=== PATIENT | female | born 1975 | race Caucasian/White ===

== ENCOUNTER 2018-05-02 03:59 | Emergency (ER) | payer SELFPAY ==
[2018-05-02] MEDS ORDERED: Ketorolac INJ* 60 MG/2 ML VIAL IM ONE (04:16)
[2018-05-02] MEDS ORDERED: Cyclobenzaprine TAB* 10 MG PO ONE (04:17)
[2018-05-02] MEDS ORDERED: oxyCODONE/Acetamin 5/325 MG* TAB PO ONE (04:17)
[2018-05-02] MEDS ORDERED: predniSONE TAB* 20 MG PO ONE (04:18)
[2018-05-02 05:23] VITALS: BP 139/65
--- NOTE | 2018-05-02 23:25 | ED ---
Lalita Jaimes Emily, scribed for Maddy Israel MD on 05/02/18 at 0420 . Back Pain - HPI Summary HPI Summary: This patient is a 42 year old F presenting to [facility] accompanied by with a chief complaint of low, right back pain radiating to right leg that began around 2100 yesterday. The patient rates the pain 6/10 in severity. Symptoms aggravated by movement. Symptoms alleviated by nothing. Patient denies bladder symptoms - History of Current Complaint Chief Complaint: EDBackInjuryPain Stated Complaint: BACK PAIN Time Seen by Provider: 05/02/18 04:09 Hx Obtained From: Patient Onset/Duration: Sudden Onset, Lasting Hours, Still Present Onset/Duration: Started Hours Ago, Atraumatic, Still Present Timing: Constant Back Pain Location: Is Discrete @ - Low, right back Severity Initially: Moderate Severity Currently: Moderate Pain Intensity: 6 Pain Scale Used: 0-10 Numeric Aggravating Symptom(s): Movement Alleviating Symptom(s): Nothing Associated Signs And Symptoms: Positive: Other - Negative bladder symptoms - Allergies/Home Medications Allergies/Adverse Reactions: Allergies Allergy/AdvReac Type Severity Reaction Status Date / Time cefaclor [From Ceclor] Allergy Severe Hives Verified 05/02/18 04:05 Latex, Natural Rubber Allergy Severe Hives Verified 05/02/18 04:05 loracarbef [From Lorabid] Allergy Severe Hives Verified 05/02/18 04:05 Penicillins Allergy Severe Difficulty Verified 05/02/18 04:05 Breathing Sulfa (Sulfonamide Allergy Severe Hives Verified 05/02/18 04:05 Antibiotics) clarithromycin [From Biaxin] Allergy Intermediate Headache Verified 05/02/18 04: 05 PMH/Surg Hx/FS Hx/Imm Hx Previously Healthy: No Musculoskeletal History: Reports: Hx Scoliosis Opthamlomology History: Denies: Hx Legally Blind EENT History: Denies: Hx Deafness Infectious Disease History: No Infectious Disease History: Denies: Traveled Outside the [place] in Last 30 Days - Family History Known Family History: Positive: Cardiac Disease, Diabetes - Social History Occupation: Unemployed Lives: With Family Alcohol Use: Occasionally Hx Substance Use: No Substance Use Type: Reports: None Hx Tobacco Use: No Smoking Status (MU): Never Smoked Tobacco Review of Systems Positive: no symptoms reported Positive: Other - Positive back pain All Other Systems Reviewed And Are Negative: Yes Physical Exam - Summary Physical Exam Summary: VITAL SIGNS: Reviewed. GENERAL: ~Patient is a well-developed and nourished female who is lying comfortable in the stretcher. Patient is not in any acute respiratory distress. HEAD AND FACE: No signs of trauma. No ecchymosis, hematomas or skull depressions. No sinus tenderness. EYES: PERRLA, EOMI x 2, No injected conjunctiva, no nystagmus. EARS: Hearing grossly intact. Ear canals and tympanic membranes are within normal limits. MOUTH: Oropharynx within normal limits. NECK: Supple, trachea is midline, no adenopathy, no JVD, no carotid bruit, no c- spine tenderness, neck with full ROM. CHEST: Symmetric, no tenderness at palpation LUNGS: Clear to auscultation bilaterally. No wheezing or crackles. CVS: Regular rate and rhythm, S1 and S2 present, no murmurs or gallops appreciated. ABDOMEN: Soft, non-tender. No signs of distention. No rebound no guarding, and no masses palpated. Bowel sounds are normal. EXTREMITIES: Straight leg raise positive left at 0 degrees and positive right straight leg raise 20 degrees, no edema, no cyanosis or clubbing. NEURO: Alert and oriented x 3. No acute neurological deficits. Speech is normal and follows commands. SKIN: Dry and warm Triage Information Reviewed: Yes Vital Signs On Initial Exam: Initial Vitals Temp Pulse Resp BP Pulse Ox 97.4 F 85 18 167/122 98 05/02/18 04:05 05/02/18 04:05 05/02/18 04:05 05/02/18 04:05 05/02/18 04:05 Vital Signs Reviewed: Yes Diagnostics - Vital Signs Vital Signs Temp Pulse Resp BP Pulse Ox 05/02/18 04:05 97.4 F 85 18 167/122 98 - Laboratory Lab Statement: Any lab studies that have been ordered have been reviewed, and results considered in the medical decision making process. Re-Evaluation - Re-Evaluation First Eval Re-Evaluation Time: 05:08 Change: Improved Comment: Discussed plan of care with the patient Back Pain Course/Dx - Course Course Of Treatment: This patient is a 42 year old F presenting to [facility] accompanied by with a chief complaint of low, right back pain radiating to right leg that began around 2100 yesterday. Upon exam, straight leg raise positive left leg at 0 degrees and positive right straight leg raise 20 degrees. The patient will be discharged home with a prescription for prednisone and percocet, and with follow up from PCP. The patient is agreeable with this plan. - Diagnoses Provider Diagnoses: Right sided sciatica Discharge - Sign-Out/Discharge Documenting (check all that apply): Discharge/Admit/Transfer - Discharge home - Discharge Plan Condition: Stable Disposition: HOME Prescriptions: oxyCODONE/Acetamin 5/325 MG* [Percocet 5/325 TAB*] 1 tab PO Q6H PRN #14 tab MDD 4 PRN Reason: Pain predniSONE TAB* [Deltasone 20 MG TAB*] 40 mg PO DAILY #10 tab Patient Education Materials: Sciatica (ED), Oxycodone/Acetaminophen (By mouth) , Prednisone (By mouth) Referrals: [facility] [Outside] - 3 Days Additional Instructions: RETURN TO THE EMERGENCY DEPARTMENT FOR NEW OR WORSENING SYMPTOMS The documentation as recorded by the Lalita thornton Emily accurately reflects the service I personally performed and the decisions made by me, Maddy Israel MD.
== END 2018-05-02 05:22 | disposition home or self-care (01) ==
LOC: ED 03:59
DX: M54.41 Lumbago with sciatica, right side (principal); M41.9 Scoliosis, unspecified; Z88.0 Allergy status to penicillin; Z88.2 Allergy status to sulfonamides; Z88.8 Allergy status to other drugs, medicaments and biological substances; Z88.1 Allergy status to other antibiotic agents; Z91.040 Latex allergy status; Z82.49 Family history of ischemic heart disease and other diseases of the circulatory system; Z83.3 Family history of diabetes mellitus
CPT/HCPCS: 96372; 99282; A9270-GY; J1885; J7512

== ENCOUNTER 2018-05-04 08:53 | Inpatient (IN) | payer SELFPAY ==
[2018-05-04] MEDS ORDERED: NS 0.9% 1000 ML* 1,000 ML IV ONE (09:26)
[2018-05-04] MEDS ORDERED: Ketorolac INJ* 30 MG/ML 1 ML VIAL IV PUSH ONE (09:26)
[2018-05-04] MEDS ORDERED: Ketorolac INJ* 30 MG/ML 1 ML VIAL ONE (09:28)
[2018-05-04] MEDS ORDERED: Morphine VIAL* 4 MG/ML VIAL (1 ml vial) IV ONE (09:30)
[2018-05-04 10:13] LABS: ABS Basophils 0.1 10^3/ul (0-0.2); ABS Eosinophils 0.2 10^3/ul (0-0.6); ABS Lymphocytes 2.5 10^3/ul (1.0-4.8); ABS Monocytes 1.1 10^3/ul (0-0.8); ABS Neutrophils 9.9 10^3/ul (1.5-7.7); ABS Nucleated RBC 0 10^3/ul; Eosinophil % 1.4 % (0-6); Hematocrit 44 % (35-47); Hemoglobin 14.4 g/dl (12.0-16.0); Lymphocyte % 18.4 % (25-47); Mean Corpuscular HGB Conc 33 g/dl (31-36); Mean Corpuscular Hemoglobin 30 pg (27-31); Mean Corpuscular Volume 90 fL (80-97); Mean Platelet Volume 8.6 um3 (7.4-10.4); Nucleated Red Blood Cells % 0.1; Platelet Count 229 10^3/ul (150-450); Red Cell Distribution Width 14 % (10.5-15); White Blood Count 13.8 10^3/ul (3.5-10.8)
[2018-05-04] MEDS ORDERED: Famotidine TAB* 20 MG PO ONE (10:14)
[2018-05-04] MEDS ORDERED: Lidocaine 2% VISCOUS* 15 ML UDC PO ONE (10:14)
[2018-05-04] MEDS ORDERED: Al Hydrox/Mg Hydrox/Simet LIQ* 30 ML UDC PO ONE (10:14)
--- NOTE | 2018-05-04 10:35 | RAD ---
Indication: RIGHT upper quadrant and epigastric pain. Comparison: No relevant prior exams available on the [facility] PACS for comparison. Technique: RIGHT upper quadrant ultrasound. Report: Appropriate direction flow documented in the portal and hepatic veins. 19.9 cm liver is increased in echogenicity. Negative for focal hepatic lesions. Negative for intrahepatic biliary dilatation. 4.4 mm common bile duct. Adequately distended gallbladder with normal 2.4 mm wall is without pathologic finding. Negative for sonographic Newton's sign. Obesity and bowel gas limiting conspicuity of the pancreas with the visualized pancreas unremarkable. Negative for ascites. 10.9 x 4.4 x 4.6 cm RIGHT kidney appears malrotated with the hilum directed anteriorly. No conspicuous focal renal lesions, stones, or hydronephrosis. IMPRESSION: 1. Enlarged liver with hepatosteatosis. 2. Negative for gallbladder pathology.
[2018-05-04] MEDS ORDERED: Iohexol 300* (CONTRAST) 10 ML SDV IV ONE (11:00)
--- NOTE | 2018-05-04 11:56 | RAD ---
INDICATION: Abdominal pain, pancreatitis. COMPARISON: Comparison is made with a prior right upper quadrant ultrasound from May 04, 2018. TECHNIQUE: A CT scan of the abdomen and pelvis was performed with intravenous and without oral contrast following intravenous injection of 136 ml of Omnipaque 300 nonionic contrast. Contiguous axial sections were obtained from the lung bases through the symphysis pubis. Images were reconstructed in the coronal and sagittal planes. FINDINGS: The lung bases are clear. No pleural effusion is present. The liver is moderately enlarged and decreased in attenuation consistent with fatty infiltration without significant focal abnormality. No calcified gallstones are seen. The spleen is upper limits of normal in size without focal abnormality. The pancreas is diffusely enlarged. There is interstitial stranding and fluid tracking around the pancreas most consistent with pancreatitis. There is no evidence for necrosis, hemorrhage or pseudocyst. The splenic and portal veins appear patent. The portal vein is normal in caliber. The kidneys and adrenal glands are normal in size. No hydronephrosis is seen. The right kidney is ptotic in location. 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 No focal renal abnormality or hydronephrosis is seen. No significant enlarged retroperitoneal lymph nodes are seen. The stomach, small and large bowel appear nondistended. There is thickening of the wall of the duodenum adjacent to the pancreatic head most consistent with inflammatory change. The appendix is within normal limits. There is mild descending and sigmoid diverticulosis without evidence for diverticulitis. There is a small periumbilical hernia containing fat. The uterus is anteverted and normal in size. No free intraperitoneal air is seen. There is a small amount of free intraperitoneal fluid within the pelvis and paracolic gutters. There is bilateral spondylolysis at the L5 level. No other focal osseous abnormalities are seen. IMPRESSION: 1. FINDINGS CONSISTENT WITH ACUTE PANCREATITIS. THERE IS NO EVIDENCE FOR NECROSIS OR HEMORRHAGE. 2. HEPATOMEGALY AND HEPATIC STEATOSIS. 3. MALROTATION OF BOTH KIDNEYS. 4. BILATERAL SPONDYLOLYSIS AT THE L5 LEVEL.
[2018-05-04] MEDS ORDERED: Morphine VIAL* 4 MG/ML VIAL (1 ml vial) IV PRN ×2 (12:13→20:50)
[2018-05-04] MEDS ORDERED: Dextrose 50% Syringe 50 ML* 25 GM/50 ML SYRINGE IV PUSH PRN (12:31)
--- NOTE | 2018-05-04 14:39 | ED ---
Erick Jaimes Stephanie, scribed for Vishnu Zuluaga MD on 05/04/18 at 0930 . Abdominal Pain/Female - HPI Summary HPI Summary: The pt is a y/o F presenting to the ED with c/o abd pain that worsened on at 21:00. Symptoms include nausea. She denies diarrhea. Her pain is located over the upper abdomen and radiates in to the back. The pt states she has had intermittent abd pain for the past 6 months. She rates her pain as a 9/10 in severity. Her pain is aggravated by deep breaths. LKMP today. The pt states she ate [employer] last night. - History of Current Complaint Chief Complaint: EDAbdPain Stated Complaint: ABD PAIN Time Seen by Provider: 05/04/18 09:27 Hx Obtained From: Patient Hx Last Menstrual Period: Now ?: No Onset/Duration: Gradual Onset, Lasting Weeks, Still Present Timing: Intermittent Episode Lasting Severity Currently: Severe Pain Intensity: 9 Pain Scale Used: 0-10 Numeric Location: Discrete At: RUQ, Discrete At: LUQ Radiates: Yes Radiates to: Back Aggravating Factor(s): Deep Breaths Alleviating Factor(s): Nothing Associated Signs and Symptoms: Positive: Back Pain, Nausea. Negative: Diarrhea Allergies/Adverse Reactions: Allergies Allergy/AdvReac Type Severity Reaction Status Date / Time cefaclor [From Ceclor] Allergy Severe Hives Verified 05/02/18 04:05 Latex, Natural Rubber Allergy Severe Hives Verified 05/02/18 04:05 loracarbef [From Lorabid] Allergy Severe Hives Verified 05/02/18 04:05 Penicillins Allergy Severe Difficulty Verified 05/02/18 04:05 Breathing Sulfa (Sulfonamide Allergy Severe Hives Verified 05/02/18 04:05 Antibiotics) clarithromycin [From Biaxin] Allergy Intermediate Headache Verified 05/02/18 04: 05 PMH/Surg Hx/FS Hx/Imm Hx GI History: Reports: Hx Gastroesophageal Reflux Disease Musculoskeletal History: Reports: Hx Scoliosis Sensory History: Denies: Hx Legally Blind, Hx Deafness Opthamlomology History: Denies: Hx Legally Blind EENT History: Denies: Hx Deafness - Surgical History Surgery Procedure, Year, and Place: NONE Infectious Disease History: No Infectious Disease History: Denies: Traveled Outside the [place] in Last 30 Days - Family History Known Family History: Positive: Cardiac Disease, Diabetes - Social History Occupation: Employed Part-time Lives: With Family Alcohol Use: Occasionally Hx Substance Use: No Substance Use Type: Reports: None Hx Tobacco Use: No Smoking Status (MU): Never Smoked Tobacco Have You Smoked in the Last Year: No Review of Systems Negative: Fever Positive: Abdominal Pain, Nausea. Negative: Diarrhea Negative: Slurred Speech All Other Systems Reviewed And Are Negative: Yes Physical Exam - Summary Physical Exam Summary: Appearance: Obese, moderate to severe pain distress Skin: warm, dry, reflects adequate perfusion Head/face: normal Eyes: EOMI, STEVE ENT: normal Neck: supple, non-tender Respiratory: CTA, breath sounds present Cardiovascular: RRR, pulses symmetrical Abdomen:moderate to severe RUQ and epigastric pain, positive Newton sign Bowel Sounds: present Musculoskeletal: normal, strength/ROM intact Neuro: normal, sensory motor intact, A&Ox3 Triage Information Reviewed: Yes Vital Signs On Initial Exam: Initial Vitals Temp Pulse Resp BP Pulse Ox 99.2 F 109 20 163/98 97 05/04/18 09:02 05/04/18 09:02 05/04/18 09:02 05/04/18 09:02 05/04/18 09:02 Vital Signs Reviewed: Yes Diagnostics - Vital Signs Vital Signs Temp Pulse Resp BP Pulse Ox 05/04/18 09:02 99.2 F 109 20 163/98 97 - Laboratory Lab Results: Lab Results 05/04/18 05/04/18 05/04/18 Range/Units 09:58 09:59 09:59 WBC 13.8 H (3.5-10.8) 10^3/ul RBC 4.90 (4.0-5.4) 10^6/ul Hgb 14.4 (12.0-16.0) g/dl Hct 44 (35-47) % MCV 90 (80-97) fL MCH 30 (27-31) pg MCHC 33 (31-36) g/dl RDW 14 (10.5-15) % Plt Count 229 (150-450) 10^3/ul MPV 8.6 (7.4-10.4) um3 Neut % (Auto) 71.7 (38-83) % Lymph % (Auto) 18.4 L (25-47) % [place] % (Auto) 7.8 H (0-7) % Eos % (Auto) 1.4 (0-6) % Baso % (Auto) 0.7 (0-2) % Absolute Neuts (auto) 9.9 H (1.5-7.7) 10^3/ul Absolute Lymphs (auto) 2.5 (1.0-4.8) 10^3/ul Absolute Monos (auto) 1.1 H (0-0.8) 10^3/ul Absolute Eos (auto) 0.2 (0-0.6) 10^3/ul Absolute Basos (auto) 0.1 (0-0.2) 10^3/ul Absolute Nucleated RBC 0 10^3/ul Nucleated RBC % 0.1 Sodium 138 L (139-145) mmol/L Potassium 3.3 L (3.5-5.0) mmol/L Chloride 102 (101-111) mmol/L Carbon Dioxide 26 (22-32) mmol/L Anion Gap 10 (2-11) mmol/L BUN 14 (6-24) mg/dL Creatinine 0.78 (0.51-0.95) mg/dL Est GFR ( Amer) 104.2 (>60) Est GFR (Non-Af Amer) 81.0 (>60) BUN/Creatinine Ratio 17.9 (8-20) Glucose 193 H (70-100) mg/dL Hemoglobin A1c (4.0-5.6) % Lactic Acid 1.7 (0.5-2.0) mmol/L Calcium 9.7 (8.6-10.3) mg/dL Total Bilirubin 0.80 (0.2-1.0) mg/dL AST 19 (13-39) U/L ALT 30 (7-52) U/L Alkaline Phosphatase 107 H (34-104) U/L C-Reactive Protein 1.88 (< 5.00) mg/L Total Protein 6.7 (6.4-8.9) g/dL Albumin 3.9 (3.2-5.2) g/dL Globulin 2.8 (2-4) g/dL Albumin/Globulin Ratio 1.4 (1-3) Triglycerides 100 mg/dL Cholesterol 195 mg/dL LDL Cholesterol 119 mg/dL HDL Cholesterol 56.5 mg/dL Lipase 2697 H (11.0-82.0) U/L TSH 3.49 (0.34-5.60) mcIU/mL Beta HCG, Quant < 0.60 mIU/mL 05/04/18 Range/Units 11:50 WBC (3.5-10.8) 10^3/ul RBC (4.0-5.4) 10^6/ul Hgb (12.0-16.0) g/dl Hct (35-47) % MCV (80-97) fL MCH (27-31) pg MCHC (31-36) g/dl RDW (10.5-15) % Plt Count (150-450) 10^3/ul MPV (7.4-10.4) um3 Neut % (Auto) (38-83) % Lymph % (Auto) (25-47) % [place] % (Auto) (0-7) % Eos % (Auto) (0-6) % Baso % (Auto) (0-2) % Absolute Neuts (auto) (1.5-7.7) 10^3/ul Absolute Lymphs (auto) (1.0-4.8) 10^3/ul Absolute Monos (auto) (0-0.8) 10^3/ul Absolute Eos (auto) (0-0.6) 10^3/ul Absolute Basos (auto) (0-0.2) 10^3/ul Absolute Nucleated RBC 10^3/ul Nucleated RBC % Sodium (139-145) mmol/L Potassium (3.5-5.0) mmol/L Chloride (101-111) mmol/L Carbon Dioxide (22-32) mmol/L Anion Gap (2-11) mmol/L BUN (6-24) mg/dL Creatinine (0.51-0.95) mg/dL Est GFR ( Amer) (>60) Est GFR (Non-Af Amer) (>60) BUN/Creatinine Ratio (8-20) Glucose (70-100) mg/dL Hemoglobin A1c 7.9 H (4.0-5.6) % Lactic Acid (0.5-2.0) mmol/L Calcium (8.6-10.3) mg/dL Total Bilirubin (0.2-1.0) mg/dL AST (13-39) U/L ALT (7-52) U/L Alkaline Phosphatase (34-104) U/L C-Reactive Protein (< 5.00) mg/L Total Protein (6.4-8.9) g/dL Albumin (3.2-5.2) g/dL Globulin (2-4) g/dL Albumin/Globulin Ratio (1-3) Triglycerides mg/dL Cholesterol mg/dL LDL Cholesterol mg/dL HDL Cholesterol mg/dL Lipase (11.0-82.0) U/L TSH (0.34-5.60) mcIU/mL Beta HCG, Quant mIU/mL Result Diagrams: 05/04/18 09:59 05/04/18 09:58 Lab Statement: Any lab studies that have been ordered have been reviewed, and results considered in the medical decision making process. - CT Abdomen/Pelvis CT Interpretation: Positive (See Comments) CT Interpretation Completed By: Radiologist - 1. FINDINGS CONSISTENT WITH ACUTE PANCREATITIS. THERE IS NO EVIDENCE FOR NECROSIS OR HEMORRHAGE. 2. HEPATOMEGALY AND HEPATIC STEATOSIS. 3. MALROTATION OF BOTH KIDNEYS. 4. BILATERAL SPONDYLOLYSIS AT THE L5 LEVEL. ED physician reviewed this report. - Additional Comments Diagnostic Additional Comments: US Gallbladder reveals: 1. Enlarged liver with hepatosteatosis. 2. Negative for gallbladder pathology. ED physician reviewed this report. Re-Evaluation - Re-Evaluation First Eval Re-Evaluation Time: 10:55 Change: Unchanged - ED physician discussed plan of admission with the pt. The pt understands and agrees with the plan of admission. Abdominal Pain Fem Course/Dx - Course Course Of Treatment: Patient with epigastric abdominal pain felt in the back. Here 2 days ago with back pain. Gallbladder ultrasound was negative for acute cholecystitis. Lipase is grossly elevated. CT scan is performed and showed no evidence of hemorrhage or abscess. Patient's pain was treated with improvement. She'll be admitted to the medical service by the hospitalist. - Diagnoses Differential Diagnosis: Positive: Other - Acute pancreatitis, acute cholecystitis, acute cholangitis, bowel obstruction, acute gastritis, abdominal aortic aneurysm Provider Diagnoses: Epigastric abdominal pain, Acute pancreatitis - Provider Notifications Discussed Care Of Patient With: John Lujan Time Discussed With Above Provider: 10:56 Instructed by Provider To: Admit As Inpatient Discharge - Sign-Out/Discharge Documenting (check all that apply): Discharge/Admit/Transfer - Discharge Plan Condition: Fair Disposition: ADMITTED TO [facility] - Billing Disposition and Condition Condition: FAIR Disposition: Admitted to [facility] The documentation as recorded by the Erick thornton Stephanie accurately reflects the service I personally performed and the decisions made by , Vishnu Zuluaga MD.
[2018-05-04] MEDS ORDERED: Ondansetron ODT TAB* 4 MG ONE (15:40)
[2018-05-04] MEDS: Ondansetron ODT TAB* 4 MG SL PRN ×2 (15:45→23:13)
[2018-05-04] MEDS: Morphine VIAL* 4 MG/ML VIAL (1 ml vial) IV PRN ×3 (15:45→20:33)
[2018-05-04] MEDS: Insulin LISPRO* 1 UNITS UNIT SUBCUT SCH ×2 (17:28→20:35)
--- NOTE | 2018-05-04 22:26 | HP ---
HISTORY AND PHYSICAL: DATE OF ADMISSION: 05/04/18 ADMITTING PROVIDER: John Lujan MD PRIMARY CARE PROVIDER: None. PRINCIPAL DIAGNOSIS: Epigastric abdominal pain. HISTORY OF PRESENT ILLNESS: Violet Chambers is a 42-year-old female with a past medical history of morbid obesity (BMI of 45), hypertension, hyperlipidemia, OBS , GERD, hypothyroidism; who has been without insurance for several years and therefore off all medications except [id number] for the same time period. She presented to the emergency room on 05/02/18, two days prior to admission, with acute right lower back pain that radiated into her bilateral groins and upper thighs. She was diagnosed with sciatica and prescribed prednisone, Percocet, and attests she was told that she could use her 's Flexeril. She has taken multiple doses of each of these. She is now presenting with acute onset of epigastric pain, 9 to 10/10. She has had similar pains on and off for the last 6 months, it is usually provoked somewhat correlated in time with eating. These are usually aching and burning sensations, but never nearly this bad/intense, however. She has occasionally had chills and hot flashes and bloating sensations. Denies any specific fevers. In the emergency room, she was found to have a lipase of 2697. Her gallbladder ultrasound showed no evidence of gallbladder pathology with no intrahepatic biliary dilatation, a 4.4 mm common bile duct. No sonographic Newton sign. It did show enlarged liver with hepatosteatosis. She was referred to hospital service for admission for pancreatitis. CT abdomen and pelvis has now been obtained with contrast with findings consistent with acute pancreatitis. There is no evidence for necrosis or hemorrhage. There is hepatomegaly, hepatic steatosis, malrotation of both kidneys, and bilateral spondylolysis at the L5 level. No calcified gallstones are seen. There was thickening of the wall of the duodenum adjacent to the pancreatic head, most consistent with inflammatory change. The patient is morbidly obese, was diagnosed with prediabetes 6 or 7 years ago. Her initial glucose levels were 193. Lipid panel was added on, that has returned with triglyceride level of 100, within normal limits. She is an occasional drinker, last had a few drinks on 04/01/18 more than a month ago. Approximately 6 years ago, she would drink 2 to 3 times a week with a quantity of 2 White Russians or 1 entire bottle of wine. She is afebrile. Does have right upper quadrant tenderness to palpation on exam. She has leukocytosis of 13.8 and tachycardia to 106. She was diagnosed with IBS in [place], status post multiple EGDs, never had a colonoscopy. She also was told she may have had a "gallstone attack" back in 2000, but the hospital that she was at had a broken ultrasound machine and she was discharged to outpatient followup. PAST MEDICAL HISTORY: Hypertension, hyperlipidemia, IBS, GERD, hypothyroidism, and morbid obesity. PAST SURGICAL HISTORY: D&C. MEDICATIONS: 1. Vitamin D. 2. Vitamin C. 3. Supplemental iron. 4. Probiotics. 5. Prednisone 40 mg daily (last 2 days). 6. Percocet 1 tab p.o. q.6 hours p.r.n. (last 2 days). 7. Flexeril, unknown dose (her 's script), taking twice a day for the last 2 days. ALLERGIES: CEFACLOR, hives; LATEX, hives; LORABID, hives; PENICILLIN, anaphylaxis; SULFA, hives; CLARITHROMYCIN, headaches. FAMILY HISTORY: Her father had diabetes, hypertension, hyperlipidemia, dementia , what sounds like normal pressure hydrocephalus, currently at [facility]. Mother with discoid lupus and hypothyroidism. 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 She is accompanied by her , Mauro Monsivais, and mother whom she lives with. They all live together. She does not have any medical insurance and has not seen a doctor in many years. She is a former smoker socially, quit about 5 years ago, a few cigarettes a day at that time. Alcohol use is only occasionally now (last 1 month ago), but 6 years ago would drink 2 to 3 times a week, 2 White Russians or 1 entire bottle of wine each night. She desires to be a full code. Medical surrogate is her . REVIEW OF SYSTEMS: A complete 14-point review of systems negative except as per HPI. She is constipated. Her last bowel movement was 3 days. This is a chronic condition for her. Her right lower back pain has resolved. PHYSICAL EXAMINATION GENERAL APPEARANCE: In no acute distress. VITAL SIGNS: Temperature 99.2, pulse rate 106, sating 98% on room air, blood pressure 131/88. HEENT: Normocephalic, atraumatic. Pupils are equal, round, and reactive to light. Extraocular movements intact. There is no scleral icterus. No oropharyngeal lesions. NECK: Supple. LUNGS: Clear to auscultation bilaterally with no wheezes, rales, or rhonchi. CARDIOVASCULAR: Regular rate and rhythm; though tachycardic. No murmurs, rubs , or gallops. ABDOMEN: Soft, distended secondary to obesity. Some mild epigastric tenderness and does have tenderness in the right upper quadrant worse with deep inspiration. No rebound or guarding. EXTREMITIES: Warm and well perfused. Trace nonpitting edema. SKIN: No lesions, no rashes. NEUROLOGIC: Cranial nerves II through XII intact. Moving all extremities. Wellness Spa Manager strength intact. LABORATORY DATA: White count 13.8, hemoglobin 14.4, hematocrit 44, platelets 229. Sodium 138, potassium 3.3, chloride 102, carbon dioxide 26, BUN 14, creatinine 0.78, glucose 193, lactic acid 1.7. AST 19, ALT 30, alk phos 107. CRP 1.88, albumin 3.9, triglycerides 100, LDL 119, HDL 56, lipase 2697, beta HCG less than 0.60. IMAGING: Gallbladder ultrasound with: 1. Enlarged liver with hepatosteatosis. 2. Negative for gallbladder pathology. CT abdomen and pelvis with contrast demonstrated: 1. Findings consistent with acute pancreatitis. There is no evidence of necrosis or hemorrhage. 2. Hepatomegaly and hepatic steatosis. 3. Malrotation of both kidneys. 4. Bilateral spondylosis at the L5 level. ASSESSMENT AND PLAN: Violet Chambers is a 42-year-old female with a past medical history of morbid obesity, hypertension, inflammatory bowel syndrome, gastroesophageal reflux disease, hyperlipidemia, hypothyroidism, at least prediabetic, presenting with 6 months of epigastric abdominal pain worse with food and now acutely worse 10/10 with the lipase elevated at 2697. Ultrasound of the gallbladder and CT abdomen and pelvis does not show any evidence of gallstones. LFTs are within normal limits except for minimally elevated alk phos at 107. Given the history, it is possible she may have transiently passed a gallstone that is not currently seen on imaging. She also has some new medications including prednisone, Percocet, and Flexeril. The prednisone specifically is occasionally associated with drug-induced pancreatitis. I am adding on IgG 4 Subclass and CARLOS to investigate for autoimmune causes of pancreatitis. There is thickening of the duodenum on the CT abdomen and pelvis. There may be consideration to have a EUS to clarify if there are any anatomic abnormalities, but will defer until further testing comes back. There is not an indication for urgent ERCP (which may have necessitated transfer to higher level of care) given the above findings. She does not have evidence of choledocholithiasis. She is going to be made n.p.o. except for sips of water to hydrate her with LR at 200 cc an hour, initially pain control with morphine 3 mg IV q.3 hours p.r.n. I am going to add on a TSH given her history of hypothyroidism (currently off any medication). I did add on 2 blood cultures given her elevated leukocytosis, tachycardia, and right upper quadrant pain. Given her morbid obesity, female gender, she may benefit from outpatient cholecystectomy after this has all stabilized. She is a full code. Medical surrogate is her , Mauro Monsivais. I will hold her prednisone and Flexeril. She is being admitted to inpatient status. Also adding on an A1c level given her hyperglycemia, put her on sliding scale insulin, [id number] testing q.a.c., h.s. [id number]/[facility] #: [id number] TING
[2018-05-04] MEDS ORDERED: HYDROmorphone INJ* 2 MG/ML CARPUJECT SYRINGE IV SLOW PU PRN ×2 (22:35→23:40)
[2018-05-04] MEDS ORDERED: oxyCODONE/Acetamin 5/325 MG* TAB PO PRN (23:39)
[2018-05-05 00:47] LABS: EGFR Non-African American 83.5 (>60)
[2018-05-05] MEDS: HYDROmorphone PCA* 20 MG/20 ML PCA.SYRING IVPB SCH (00:52)
[2018-05-05 04:42] LABS: Urine Appearance Cloudy; Urine Blood 3+ (Negative); Urine Color Yellow; Urine Ketones 1+ (Negative); Urine Protein 2+(100 mg/dL) (Negative); Urine Specific Gravity 1.032 (1.010-1.030); Urine Urobilinogen Negative (Negative)
[2018-05-05 06:05] LABS: ABS Basophils 0.1 10^3/ul (0-0.2); ABS Eosinophils 0 10^3/ul (0-0.6); ABS Lymphocytes 0.7 10^3/ul (1.0-4.8); ABS Monocytes 1.4 10^3/ul (0-0.8); ABS Neutrophils 18.7 10^3/ul (1.5-7.7); ABS Nucleated RBC 0 10^3/ul; Eosinophil % 0 % (0-6); Hematocrit 49 % (35-47); Hemoglobin 15.9 g/dl (12.0-16.0); Lymphocyte % 3.4 % (25-47); Mean Corpuscular HGB Conc 33 g/dl (31-36); Mean Corpuscular Hemoglobin 30 pg (27-31); Mean Corpuscular Volume 91 fL (80-97); Mean Platelet Volume 9.4 um3 (7.4-10.4); Nucleated Red Blood Cells % 0; Platelet Count 217 10^3/ul (150-450); Red Blood Count 5.33 10^6/ul (4.0-5.4); Red Cell Distribution Width 14 % (10.5-15); White Blood Count 20.9 10^3/ul (3.5-10.8)
[2018-05-05 06:27] LABS: EGFR Non-African American 79.8 (>60)
[2018-05-05] MEDS: Insulin LISPRO* 1 UNITS UNIT SUBCUT SCH ×4 (09:10→21:59)
[2018-05-05] MEDS ORDERED: Insulin LISPRO* 1 UNITS UNIT SUBCUT ONE ×2 (09:15→14:00)
[2018-05-05] MEDS: Ciprofloxacin 400MG IVPREMIX(* 400 MG/200 ML BAG IVPB SCH ×2 (17:15→17:19)
--- NOTE | 2018-05-05 18:20 | PN ---
Subjective Date of Service: 05/05/18 Interval History: Pt put on a dilaudid MUD MILL TENDER overnight. Lipase was rechecked at that time, up to 5642 then down to 1454 by AM. slight cholestatic pattern of LFTs with TBili 1.5 , indirect 1.3, alk phos 141. WBC up to 20.9. Afebrile. Complaint of warmth, asked for cooling fans. Hyperglycemia to 400s. GI consult placed in AM. Tachycardic to 130s. Fluid bolused twice and continued aggressive mIVF. IgG 4 wnl Cultures negative. was going to be started on cipro but then thought she may have cipro allergy. Already known pcn allergy(anaphylaxis) Objective Active Medications: Dextrose (D50w Syringe 50 Ml*) 12.5 gm IV PUSH .FOR FS < 60 - SS PRN PRN Reason: FS < 60 Hydromorphone HCl (Dilaudid Inj*) 1 mg IV SLOW PU Q2H PRN PRN Reason: PAIN Last Admin: 05/05/18 00:18 Dose: 1 mg Hydromorphone HCl (Dilaudid Microwave Remote Sensing Scientist*) 20 mg in 20 mls @ 0 mls/hr IVPB .change Q24H LUANA; As Directed PRN Reason: Protocol Last Admin: 05/05/18 00:52 Dose: 0.2 mls/hr Lactated Ringer's (Lactated Ringers 1000 Ml Bag*) 1,000 mls @ 1,000 mls/hr IV WIDE OPEN LUANA Stop: 05/05/18 23:59 Last Admin: 05/05/18 12:29 Dose: 1,000 mls/hr Lactated Ringer's (Lactated Ringers 1000 Ml Bag*) 1,000 mls @ 250 mls/hr IV PER RATE LUANA Stop: 05/06/18 00:29 Last Admin: 05/05/18 13:52 Dose: 250 mls/hr Lactated Ringer's (Lactated Ringers 1000 Ml Bag*) 1,000 mls @ 0 mls/hr IV WIDE OPEN LUANA PRN Reason: Wide Open Stop: 05/05/18 23:59 Last Admin: 05/05/18 12:50 Dose: 999 mls/hr Meropenem (Merrem 1 Gm Premix(*)) 1 gm in 50 mls @ 100 mls/hr IV Q8H [facility] Insulin Human Lispro (Humalog*) 0 units SUBCUT ACHS LUANA PRN Reason: Protocol Last Admin: 05/05/18 16:41 Dose: 12 unit Ondansetron HCl (Zofran Odt Tab*) 4 mg SL Q6H PRN PRN Reason: NAUSEA/VOMITING Last Admin: 05/04/18 23:13 Dose: 4 mg Vital Signs - 8 hr 05/05/18 05/05/18 05/05/18 11:00 11:37 13:00 Temperature 97.5 F Pulse Rate 133 Respiratory 18 18 16 Rate Blood Pressure 135/77 (mmHg) O2 Sat by Pulse 96 100 97 Oximetry 05/05/18 05/05/18 05/05/18 15:00 15:36 17:00 Temperature 96.8 F Pulse Rate 134 Respiratory 20 20 18 Rate Blood Pressure 148/72 (mmHg) O2 Sat by Pulse 98 98 97 Oximetry Oxygen Devices in Use Now: Nasal Cannula Appearance: moderately ill appearing. Eyes: No Scleral Icterus, PERRLA Ears/Nose/Mouth/Throat: NL Teeth, Lips, Gums Neck: NL Appearance and Movements; NL JVP, Trachea Midline Respiratory: Symmetrical Chest Expansion and Respiratory Effort, Clear to Auscultation Cardiovascular: - - tachycardic, regular, no m/r/g Abdominal: - - epigastric and RUQ tenderness to deep palpation. soft, nondistended but obese. Extremities: No Edema, No Clubbing, Cyanosis Skin: No Rash or Ulcers Neurological: Alert and Oriented x 3 Result Diagrams: 05/05/18 05:45 05/05/18 05:45 Additional Lab and Data: Laboratory Results - last 24 hr 05/04/18 05/04/18 05/04/18 04:13 10:04 20:17 WBC RBC Hgb Hct MCV MCH MCHC RDW Plt Count MPV Neut % (Auto) Lymph % (Auto) Newton % (Auto) Eos % (Auto) Baso % (Auto) Absolute Neuts (auto) Absolute Lymphs (auto) Absolute Monos (auto) Absolute Eos (auto) Absolute Basos (auto) Absolute Nucleated RBC Nucleated RBC % Sodium Potassium Chloride Carbon Dioxide Anion Gap BUN Creatinine Est GFR ( Amer) Est GFR (Non-Af Amer) BUN/Creatinine Ratio Glucose POC Glucose (mg/dL) 212 H POC Glucose Confirm Calcium Total Bilirubin Direct Bilirubin Indirect Bilirubin AST ALT Alkaline Phosphatase Lactate Dehydrogenase Total Protein Albumin Globulin Albumin/Globulin Ratio Lipase Urine Color Yellow Urine Appearance Cloudy Urine pH 5.0 Ur Specific Amity 1.032 H Urine Protein 2+(100 mg/dl) A Urine Ketones 1+ A Urine Blood 3+ A Urine Nitrate Negative Urine Bilirubin Negative Urine Urobilinogen Negative Ur Leukocyte Esterase Negative Urine WBC (Auto) Trace(0-5/hpf) Urine RBC (Auto) 3+(>10/hpf) A Ur Squamous Epith Cells Present A Urine Bacteria Absent Urine Glucose 3+(>=500 mg/dl) A IgG Total 645 L IgG1 344 IgG2 192 IgG3 34.1 IgG4 16.1 05/04/18 05/05/18 05/05/18 23:52 05:45 05:45 WBC 20.9 H RBC 5.33 Hgb 15.9 Hct 49 H MCV 91 MCH 30 MCHC 33 RDW 14 Plt Count 217 MPV 9.4 Neut % (Auto) 89.7 H Lymph % (Auto) 3.4 L Newton % (Auto) 6.6 Eos % (Auto) 0 Baso % (Auto) 0.3 Absolute Neuts (auto) 18.7 H Absolute Lymphs (auto) 0.7 L Absolute Monos (auto) 1.4 H Absolute Eos (auto) 0 Absolute Basos (auto) 0.1 Absolute Nucleated RBC 0 Nucleated RBC % 0 Sodium 136 L 135 L Potassium 3.9 5.0 Chloride 103 100 L Carbon Dioxide 23 22 Anion Gap 10 13 H BUN 13 13 Creatinine 0.76 0.79 Est GFR ( Amer) 107.3 102.6 Est GFR (Non-Af Amer) 83.5 79.8 BUN/Creatinine Ratio 17.1 16.5 Glucose 225 H 360 H POC Glucose (mg/dL) POC Glucose Confirm Calcium 9.6 10.0 Total Bilirubin 1.20 H 1.50 H Direct Bilirubin 0.20 H Indirect Bilirubin 1.3 H AST 25 25 ALT 29 28 Alkaline Phosphatase 122 H 141 H Lactate Dehydrogenase 300 H Total Protein 6.1 L 6.2 L Albumin 3.6 3.7 Globulin 2.5 2.5 Albumin/Globulin Ratio 1.4 1.5 Lipase 5642 H 1454 H Urine Color Urine Appearance Urine pH Ur Specific Amity Urine Protein Urine Ketones Urine Blood Urine Nitrate Urine Bilirubin Urine Urobilinogen Ur Leukocyte Esterase Urine WBC (Auto) Urine RBC (Auto) Ur Squamous Epith Cells Urine Bacteria Urine Glucose IgG Total IgG1 IgG2 IgG3 IgG4 05/05/18 05/05/18 05/05/18 07:28 07:56 12:32 WBC RBC Hgb Hct MCV MCH MCHC RDW Plt Count MPV Neut % (Auto) Lymph % (Auto) Newton % (Auto) Eos % (Auto) Baso % (Auto) Absolute Neuts (auto) Absolute Lymphs (auto) Absolute Monos (auto) Absolute Eos (auto) Absolute Basos (auto) Absolute Nucleated RBC Nucleated RBC % Sodium Potassium Chloride Carbon Dioxide Anion Gap BUN Creatinine Est GFR ( Amer) Est GFR (Non-Af Amer) BUN/Creatinine Ratio Glucose POC Glucose (mg/dL) 402 H* 411 H* POC Glucose Confirm 431 H Calcium Total Bilirubin Direct Bilirubin Indirect Bilirubin AST ALT Alkaline Phosphatase Lactate Dehydrogenase Total Protein Albumin Globulin Albumin/Globulin Ratio Lipase Urine Color Urine Appearance Urine pH Ur Specific Amity Urine Protein Urine Ketones Urine Blood Urine Nitrate Urine Bilirubin Urine Urobilinogen Ur Leukocyte Esterase Urine WBC (Auto) Urine RBC (Auto) Ur Squamous Epith Cells Urine Bacteria Urine Glucose IgG Total IgG1 IgG2 IgG3 IgG4 05/05/18 05/05/18 12:59 16:12 WBC RBC Hgb Hct MCV MCH MCHC RDW Plt Count MPV Neut % (Auto) Lymph % (Auto) Newton % (Auto) Eos % (Auto) Baso % (Auto) Absolute Neuts (auto) Absolute Lymphs (auto) Absolute Monos (auto) Absolute Eos (auto) Absolute Basos (auto) Absolute Nucleated RBC Nucleated RBC % Sodium Potassium Chloride Carbon Dioxide Anion Gap BUN Creatinine Est GFR ( Amer) Est GFR (Non-Af Amer) BUN/Creatinine Ratio Glucose POC Glucose (mg/dL) 342 H POC Glucose Confirm 411 H Calcium Total Bilirubin Direct Bilirubin Indirect Bilirubin AST ALT Alkaline Phosphatase Lactate Dehydrogenase Total Protein Albumin Globulin Albumin/Globulin Ratio Lipase Urine Color Urine Appearance Urine pH Ur Specific Amity Urine Protein Urine Ketones Urine Blood Urine Nitrate Urine Bilirubin Urine Urobilinogen Ur Leukocyte Esterase Urine WBC (Auto) Urine RBC (Auto) Ur Squamous Epith Cells Urine Bacteria Urine Glucose IgG Total IgG1 IgG2 IgG3 IgG4 Microbiology and Other Data: Microbiology 05/04/18 15:23 Blood Venous Aerobic Blood Culture - Preliminary No Growth Day 1 05/04/18 15:23 Blood Venous Anaerobic Blood Culture - Preliminary No Growth Day 1 05/04/18 11:49 Blood Venous Aerobic Blood Culture - Preliminary No Growth Day 1 05/04/18 11:49 Blood Venous Anaerobic Blood Culture - Preliminary No Growth Day 1 Assess/Plan/Problems-Billing Assessment: 42 yo female PMH morbid obesity with ~6 months of epigastric discomfort often correlated food intake p/w acute epigastric pain and elevated lipase concerning for acute pancreatitis of undetermined etiology. No gallstones seen on RUQ Ultrasound or CT abd/pelvis with IV contrast. No necrosis. Sick - Patient Problems (1) Acute pancreatitis Current Visit: Yes Status: Acute Code(s): K85.90 - ACUTE PANCREATITIS WITHOUT NECROSIS OR INFECTION, UNSP SNOMED Code(s): 177491171 Comment: Unclear etiology. Lipids only 100. No e/o gall bladder pathology. Initially normal LFTs with only slight increase today, cholestatic pattern with alk phos and bili slightly elevated. My suspicion is for passed gallstone. IgG 4 wnl. F/u CARLOS. Appreciate GI recs, did not recommend any additional imaging at this juncture. aggressive IVF pain control, currently requiring dilaudid bottom filler. LFTs daily. Would recommend cholecystectomy after pancreatitis resolves. Consider repeat CT abd/pelvis in 24-48 hours. meropenem started empirically given her rising leukocytosis, tachycardia, and pain. Consider rectal temp. was not reading orally this AM. (2) Tachycardia Current Visit: Yes Status: Acute Code(s): R00.0 - TACHYCARDIA, UNSPECIFIED SNOMED Code(s): 4665810 Comment: 2/2 pancreatitis. EKG: NSR (3) Hyperglycemia Current Visit: Yes Status: Acute Code(s): R73.9 - HYPERGLYCEMIA, UNSPECIFIED SNOMED Code(s): 46272164 Comment: high dose SSI. Patient with new diagnosis of diabetes mellitus (A1C 7.9)and will need new medications or atleast alot of education and lifestyle modification prior and after discharge. Has not seen doctor in many years. (4) Hypertension Current Visit: Yes Status: Acute Code(s): I10 - ESSENTIAL (PRIMARY) HYPERTENSION SNOMED Code(s): 92786794 Comment: reports prior diagnosis but no meds at home. last 130-140s but diastolic elevated previously. Continue to monitor (5) Abdominal pain Current Visit: Yes Status: Acute Code(s): R10.9 - UNSPECIFIED ABDOMINAL PAIN SNOMED Code(s): 72271256 Comment: 2/ pancreatitis. (6) Leukocytosis Current Visit: Yes Status: Acute Code(s): D72.829 - ELEVATED WHITE BLOOD CELL COUNT, UNSPECIFIED SNOMED Code(s): 372368265 Comment: 12/30 pancreatitis. Status and Disposition: medicine inpatient.
[2018-05-05] MEDS: Meropenem 1 GM PREMIX(*) 1 GM/50 ML BAG IV SCH (18:48)
[2018-05-05] MEDS ORDERED: Acetaminophen TAB* 325 MG PO PRN (19:23)
--- NOTE | 2018-05-05 22:09 | CONS ---
CONSULTATION REPORT: DATE OF CONSULT: 05/05/18 REQUESTING PHYSICIAN: Dr. Lujan. PRIMARY CARE PHYSICIAN: None. INDICATION FOR CONSULTATION: Pancreatitis. NARRATIVE: Ms. Chambers is a very pleasant 42-year-old female, who has a history of morbid obesity, GERD, hypothyroid, hypertension and hyperlipidemia, who presented to the emergency room yesterday with epigastric pain. She states that the pain was very severe. It did pretty much stay within her epigastric area. It is worsened by eating. She states that she has had this pain in the past over the past 6 months, but it has never been this severe, some nausea, no vomiting. Of note, she did recently start prednisone, Percocet, and Flexeril for sciatica. She denies any other new medications. No recent nonsteroidal use. She was a fairly heavy drinker in the past; however, she states that she really has not had much alcohol to speak of in the past few months, just 2 drinks on [employer] and that was the last time she has had any alcohol. She denies any trauma or injury to her abdomen. She has never had pancreatitis in the past. No family history of pancreatitis. She did tell me, however, that she recently was smoking marijuana with a friend of hers who does have Moy-Sims virus and they were sharing the marijuana. Currently, she continues to have epigastric pain. She states that it is slightly better than when she presented yesterday. She is starting to feel a little hungry. No other new symptoms. PAST MEDICAL HISTORY: Please see the HPI. She additionally has irritable bowel syndrome. PAST SURGICAL HISTORY: No surgical history. MEDICATIONS UPON ADMISSION: Include: 1. Multiple vitamins. 2. The previously mentioned prednisone, Flexeril, and Percocet. 3. She also takes a generic probiotic. ALLERGIES: To LATEX, PENICILLIN, CLARITHROMYCIN. FAMILY HISTORY: Significant for hypertension, diabetes, lupus. SOCIAL HISTORY: She works intermittently. She is . Her is with her today in the room. She used to drink alcohol heavily, but again none recently. She smoked in the past; however, really does not smoke much at all now. REVIEW OF SYSTEMS: Twelve systems were reviewed, other than that mentioned in the HPI were unremarkable. PHYSICAL EXAM: Temperature is 97.5, blood pressure is 135/77, pulse is 133, O2 sat is 100% on room air. General: slightly ill-appearing female, sitting up in a chair with her feet propped up, speaking with her when I entered the room. She is alert, oriented, pleasant, fluent. HEENT: Mucous membranes are dry. Dentition is good. Head is normocephalic, atraumatic. No scleral icterus. Heart: Regular rate and rhythm, but tachycardic. Lungs: Clear to auscultation bilaterally. No wheezes, rales, or rhonchi. Abdomen is obese, hypoactive bowel sounds, soft. She is tender throughout; however, more so on the epigastrium. No rebound, no guarding. No masses were felt. Skin is warm and dry. No rashes. No jaundice of the skin. DIAGNOSTIC STUDIES/LAB DATA: Labs of note: White count had gone up from 13.8 to 20.9, hemoglobin is 15.9, platelets of 217. Sodium is 135, BUN 13, creatinine is 0.79, glucose is 362. Bilirubin has gone up from 1.2 to 1.5, direct is 1.3, indirect 0.2, AST and ALT both normal, alk phos went up from 122 to 141. LDH is 300, triglycerides were normal. Lipase has come down from 5642 to 1454. Triglycerides were 100. She also has a total IgG of 645; however, her IgG4 is normal at 16.1. CARLOS is negative. She had a gallbladder ultrasound, which showed an enlarged liver, no gallbladder pathology. CT of the abdomen and pelvis shows findings consistent with acute pancreatitis, no evidence for necrosis or hemorrhage, fatty liver, malrotation of both kidneys. ASSESSMENT AND PLAN: This is a pleasant 42-year-old female with an unknown cause of pancreatitis. At this point, I agree with the workup, which is including pain control, IV fluids. She is asking for some josé lizzy and I think it is reasonable to give her that. Additionally, the more common causes of pancreatitis have been ruled out such as gallstones; however, she could have passed a stone that we just did not see on CT or ultrasound. I do not think she has been drinking enough alcohol to contribute to this. There appears to be no trauma. IgG4 is normal making autoimmune pancreatitis less likely. Some of her medications could have done this, namely the prednisone. This could be viral effect. EBV is not a common virus for pancreatitis, but she was exposed to it via a friend and marijuana. This could be idiopathic. At this point, I would recommend we continue with the current treatment. I will follow along. [id number]/[facility] #: [id number] TING
[2018-05-06] MEDS: Meropenem 1 GM PREMIX(*) 1 GM/50 ML BAG IV SCH ×3 (04:14→21:07)
[2018-05-06 06:34] LABS: ABS Basophils 0.1 10^3/ul (0-0.2); ABS Eosinophils 0.1 10^3/ul (0-0.6); ABS Lymphocytes 1.6 10^3/ul (1.0-4.8); ABS Monocytes 1.5 10^3/ul (0-0.8); ABS Neutrophils 19.9 10^3/ul (1.5-7.7); ABS Nucleated RBC 0 10^3/ul; Eosinophil % 0.3 % (0-6); Hematocrit 45 % (35-47); Hemoglobin 14.7 g/dl (12.0-16.0); Lymphocyte % 6.9 % (25-47); Mean Corpuscular HGB Conc 33 g/dl (31-36); Mean Corpuscular Hemoglobin 30 pg (27-31); Mean Corpuscular Volume 91 fL (80-97); Nucleated Red Blood Cells % 0; Platelet Count 181 10^3/ul (150-450); Red Blood Count 4.89 10^6/ul (4.0-5.4); Red Cell Distribution Width 14 % (10.5-15); White Blood Count 23.1 10^3/ul (3.5-10.8)
[2018-05-06 06:51] LABS: EGFR Non-African American 21.9 (>60)
[2018-05-06] MEDS: Insulin LISPRO* 1 UNITS UNIT SUBCUT SCH ×4 (08:38→21:08)
[2018-05-06] MEDS: HYDROmorphone PCA* 20 MG/20 ML PCA.SYRING IVPB SCH (09:51)
--- NOTE | 2018-05-06 09:55 | PN ---
Subjective Date of Service: 05/06/18 Interval History: Patient reports she feels about the same as yesterday but does report increased abdominal pain this morning compared to the last few days stating she believes it is because she slept last night and wasn't using her LICENSED BONDSMAN. She reports diffuse abdominal pain. Reports SOB stating it hurts to take a deep breath, but is consistent with the last few days. SHe reports more bloating today, reports a feeling of "trapped gas", she is passing flatulence. No BM in multiple days. Low urine output. She was bladder scanned last night and was found to have around 100 mls. Has not voided since yesterday. Reports she ate jello for the first time last night and it made her nauseous, currently has no appetite. Low grade temp last night, no chills. No vomiting. Per who is at the bedside he reports she looks better today with "more color in her face". Objective Active Medications: Acetaminophen (Tylenol Tab*) 650 mg PO Q6H PRN PRN Reason: FEVER Last Admin: 05/05/18 20:02 Dose: 650 mg Dextrose (D50w Syringe 50 Ml*) 12.5 gm IV PUSH .FOR FS < 60 - SS PRN PRN Reason: FS < 60 Docusate Sodium (Colace Cap*) 100 mg PO DAILY PRN PRN Reason: CONSTIPATION Hydromorphone HCl (Dilaudid Inj*) 1 mg IV SLOW PU Q2H PRN PRN Reason: PAIN Last Admin: 05/05/18 00:18 Dose: 1 mg Hydromorphone HCl (Dilaudid Regional Coordinator*) 20 mg in 20 mls @ 0 mls/hr IVPB .change Q24H LUANA; As Directed PRN Reason: Protocol Last Admin: 05/05/18 00:52 Dose: 0.2 mls/hr Meropenem (Merrem 1 Gm Premix(*)) 1 gm in 50 mls @ 100 mls/hr IV Q8H LUANA Last Admin: 05/06/18 04:14 Dose: 100 mls/hr Lactated Ringer's (Lactated Ringers 1000 Ml Bag*) 1,000 mls @ 0 mls/hr IV WIDE OPEN LUANA PRN Reason: Wide Open Stop: 05/06/18 23:59 Lactated Ringer's (Lactated Ringers 1000 Ml Bag*) 1,000 mls @ 250 mls/hr IV PER RATE LUANA Insulin Human Lispro (Humalog*) 0 units SUBCUT ACHS LUANA PRN Reason: Protocol Last Admin: 05/06/18 08:38 Dose: 3 unit Ondansetron HCl (Zofran Odt Tab*) 4 mg SL Q6H PRN PRN Reason: NAUSEA/VOMITING Last Admin: 05/04/18 23:13 Dose: 4 mg Vital Signs - 8 hr 05/06/18 05/06/18 05/06/18 03:00 04:40 05:00 Temperature 99.0 F Pulse Rate 129 Respiratory 16 20 20 Rate Blood Pressure 138/96 (mmHg) O2 Sat by Pulse 98 99 99 Oximetry 05/06/18 05/06/18 05/06/18 06:49 07:17 07:36 Temperature 97.9 F Pulse Rate 132 Respiratory 25 28 25 Rate Blood Pressure 152/87 (mmHg) O2 Sat by Pulse 96 99 Oximetry Oxygen Devices in Use Now: Nasal Cannula Appearance: 42 yo obese female A+Ox3 appears tachypneic and in mild-mod pain Eyes: No Scleral Icterus, PERRLA Ears/Nose/Mouth/Throat: Mucous Membranes Moist Neck: Trachea Midline Respiratory: Clear to Auscultation, - - tachypnea Cardiovascular: NL Sounds; No Murmurs; No JVD, RRR, No Edema Abdominal: - - obese, distended, soft, diffuse tenderness, mild guarding. Extremities: No Edema, No Clubbing, Cyanosis Neurological: Alert and Oriented x 3, NL Sensation, NL Muscle Strength and Tone Lines/Tubes/Other Access: Clean, Dry and Intact Peripheral IV Nutrition: - - NPO with ice chips Result Diagrams: 05/06/18 05:59 05/06/18 05:59 Additional Lab and Data: Microbiology and Other Data: Microbiology 05/04/18 15:23 Blood Venous Aerobic Blood Culture - Preliminary No Growth Day 1 05/04/18 15:23 Blood Venous Anaerobic Blood Culture - Preliminary No Growth Day 1 05/04/18 11:49 Blood Venous Aerobic Blood Culture - Preliminary No Growth Day 1 05/04/18 11:49 Blood Venous Anaerobic Blood Culture - Preliminary No Growth Day 1 Assess/Plan/Problems-Billing Assessment: 42 yo female PMH morbid obesity with ~6 months of epigastric discomfort often correlated food intake p/w acute epigastric pain and elevated lipase concerning for acute pancreatitis of undetermined etiology. No gallstones seen on RUQ Ultrasound or CT abd/pelvis with IV contrast. No necrosis noted. - Patient Problems (1) Acute pancreatitis Comment: Sepsis Unclear etiology of pancreatitis suspicion is she passed gallstone. No e/o gall bladder pathology. Initially normal of LFTs with only slight increase since admission, cholestatic pattern with alk phos and elevated bili. IgG 4 wnl. CARLOS negative Appreciate GI recommendations - Discussed with Dr. Peralta this morning. Does not recommend further imaging at this time, Recommends fluid resusitation - recheck labs this afternoon. ok to give colace for bowel regimen. Plan to give LR 1 liter bolus then run at a rate 250 ml/hr low urine out with new ASHLEY - plan to place godoy pain control, currently requiring dilaudid show girl. Consider repeat CT abd/pelvis if labs this afternoon are not improving meropenem started empirically given her leukocytosis, tachycardia, and pain. Consider rectal temp. was not reading orally Will possible require alexandra at some point Blood cx NTD. Urine cx Negative. Switch back to NPO except ice chips Plan to transfer to ICU for new ASHLEY, low urine output, tachypnea requiring strict I+Os and higher level of monitoring and nursing care. Discussed with player manager Dr. Fletcher who will consult Repeat lactic (2) ARF (acute renal failure) Comment: - new ARF. Possibly secondary to IV contrast vs sepsis. Creatinine 2.4 today up from 0.7. Low urine output. urine cx negative. Continue fluid resusitation and recheck labs this afternoon. Do not think the patient will tolerate renal u/s at this time. Plan to repeat labs this afetrnoon and if they are worse will consider CT scan w/o contrast. Abdominal pressure monitoring will most likely not be accurate d/t obesity. - Strict I+Os with placement of godoy catheter - send urine to calculate FENa - continue fluid resusitation (3) Leukocytosis Comment: 2/2 pancreatitis. (4) Hyperglycemia Comment: FSBG Q6hr with lispro high dose SSI. Patient with new diagnosis of diabetes mellitus (A1C 7.9) and will need new medications or at least alot of education and lifestyle modification prior and after discharge. Has not seen doctor in many years. (5) Hypertension Comment: reports prior diagnosis but no meds at home. last 130-140s but diastolic elevated previously. Continue to monitor (6) Tachycardia Comment: 2/2 pancreatitis. EKG: NSR (7) Hypothyroidism Comment: - Hx of hypothyroidism but stopped taking medication several years ago d/t lack of insurance. add on thyroid panel. (8) DVT prophylaxis Comment: SCDs (9) Full code status Status and Disposition: medicine inpatient. Transfer to [facility]U for increased nursing care and monitoring
[2018-05-06] MEDS ORDERED: Docusate CAP* 100 MG PO PRN (10:00)
[2018-05-06] MEDS ORDERED: Docusate CAP* 100 MG PO SCH (10:00)
[2018-05-06] MEDS ORDERED: NS 0.9% 1000 ML* 1,000 ML IV ONE (12:37)
[2018-05-06] MEDS ORDERED: Famotidine IV * 20 MG in NS 0.9% 100 ML* 100 ML IVPB SCH (13:00)
--- NOTE | 2018-05-06 13:00 | CONSULT ---
Consult Consult: CRITICAL CARE MEDICINE DATE: 05/06/18 TIME: 1220 REFERRING PROVIDER: Kev REASON/CHIEF COMPLAINT: severe pancreatitis HISTORY OF PRESENT ILLNESS: 42 F presenting 05/06 with abd pain and ct with contrast, labs revealing pancreatitis. Lipase initially ~2000 then to ~5k and now back to 2k. Fluids off last pm and Cr elevated this am with dec uout, inc hr and tachypnea. Transferred to ICU with fluid boluses instilling and supportive care. present as well. She still has been but more lower abd now. on dilaudid corn grower. feels like abd is tight making it hard to breath. REVIEW OF SYSTEMS: As per HPI. +menses currently; no renal issues in past; long standing obesity PAST MEDICAL HISTORY: As per HPI. Morbid obesity, HÉCTOR not using tx, told she had liver issues in the past from etoh, gerd, htn, hypt4 MEDICATIONS: Reviewed. ALLERGIES: Reviewed. SOCIAL HISTORY: Reviewed. , no kids FAMILY HISTORY: Noncontributory at present. PHYSICAL EXAM: Vital Signs: Reviewed. Hr ~120s, RR almost at 30, sats ok of 2L, afeb Neurologic: awake, communicating, mild euphoria with rx HEENT: perrl, eomi, mm dry Cardiovascular: tachy, no m Respiratory: labrored; short and shallow, pattern of least wob currently and morphology of obesity with more lateral excursion vs ap. no rales nor wheezes. Abdomen: obese, not too soft but not hard, distension and discomfort all overall without localizing other then lower pelvis Extremities: warm, + edema LABS: Reviewed. IMAGING: Reviewed. MEDICATIONS: Reviewed. ASSESSMENT: 42 F Acute pancreatitis - etiology still questionable and GI workup ongoing Intravascular PLAN: Neurologic: tolerating and remains on dilaudid corn grower Cardiovascular: Intravascularly needing further volume (boluses ordered) and continue as still seems to have ongoing ebb phase. will likely remain tachy but need to dec demands. Respiratory: wob and acute hypoxic resp failure now seems more secondary to habitus and large metabolic demands, rather then ALI itself post pancreatitis, but given high potential for lung insult with this inflammation and wob, place on HFO2 and can obtain a cxr soon to see if early ali Gastrointestinal: gi following. npo currently. hopefully pancreatitis is just in evolution and peak insult already past. Not currently acting like stone but inflammation ongoing. sup. Renal/Metabolic: ASHLEY. multifactorial, but largest concern is post iv dye with declining intravascular vol. Vol to instill and f/u uout. Infectious Disease: was started on meropenum. therefore would now continue, hopefully just short course, rather then just stopping now. Hematology: hemoconcentrated. menses may influence counts too. vte prophylaxis Endocrine: glucose control adjustments Musculoskeletal: rest currently Psych/Social: present and both expressed understanding of the severity, especially as we did discuss potentials of life supports etc if worsening. Supportive and preventative care as ordered. SUP: h2 VTE prophylaxis: heparin Disposition: ICU Code Status: Full Critical Care Time: 45min FAimee Fletcher DO
[2018-05-06] MEDS: Famotidine IV* 10 MG/ML 2 ML (20 mg) IV SCH (13:54)
[2018-05-06] MEDS: Heparin VIAL(*) 5000 UNITS/ML VIAL (FIVE THOUSAND) SUBCUT SCH ×2 (13:54→21:10)
--- NOTE | 2018-05-06 14:47 | RAD ---
INDICATION: Hypoxia COMPARISON: None. TECHNIQUE: Single AP portable view of the chest was obtained. FINDINGS: Image quality is compromised due to the relative inferiority of a portable chest x-ray. The lung volumes appear small which may be due to poor inspiratory effort. The heart and mediastinum exhibit normal contours. There is questionable left lung costophrenic angle blunting. IMPRESSION: Low quality image possibly exacerbated by poor inspiratory effort demonstrates density at the left lung base that could be consolidation and/or pleural effusion.
[2018-05-06 17:13] LABS: EGFR Non-African American 23.6 (>60)
[2018-05-06] MEDS: Ondansetron ODT TAB* 4 MG SL PRN (21:11)
[2018-05-07] MEDS ORDERED: Acetaminophen SUPP* 650 MG SUPP PR PRN (03:41)
[2018-05-07 03:54] LABS: Hematocrit 38 % (35-47); Hemoglobin 12.1 g/dl (12.0-16.0); Mean Corpuscular HGB Conc 32 g/dl (31-36); Mean Corpuscular Hemoglobin 30 pg (27-31); Mean Corpuscular Volume 92 fL (80-97); Mean Platelet Volume 9.7 um3 (7.4-10.4); Platelet Count 165 10^3/ul (150-450); Red Blood Count 4.09 10^6/ul (4.0-5.4); Red Cell Distribution Width 14 % (10.5-15)
[2018-05-07 04:07] LABS: EGFR Non-African American 27.5 (>60)
[2018-05-07] MEDS: Bisacodyl SUPP* 10 MG SUPP PR PRN ×2 (04:12→20:40)
[2018-05-07 04:17] LABS: ABS Basophils 0 10^3/ul (0-0.2); ABS Eosinophils 0.1 10^3/ul (0-0.6); ABS Lymphocytes 1.2 10^3/ul (1.0-4.8); ABS Monocytes 1.2 10^3/ul (0-0.8); ABS Neutrophils 18.9 10^3/ul (1.5-7.7)
[2018-05-07 05:21] LABS: Monocytes % 3 % (0-7)
[2018-05-07] MEDS: Heparin VIAL(*) 5000 UNITS/ML VIAL (FIVE THOUSAND) SUBCUT SCH ×3 (05:33→21:59)
[2018-05-07 06:15] LABS: EGFR Non-African American 30.9 (>60)
[2018-05-07] MEDS: Insulin LISPRO* 1 UNITS UNIT SUBCUT SCH ×4 (08:44→20:40)
[2018-05-07] MEDS: Meropenem 1 GM PREMIX(*) 1 GM/50 ML BAG IV SCH ×2 (08:45→20:48)
[2018-05-07] MEDS: Famotidine IV* 10 MG/ML 2 ML (20 mg) IV SCH (08:45)
--- NOTE | 2018-05-07 11:00 | PN ---
Progress Note - Progress Note Date of Service: 05/07/18 Note: CRITICAL CARE MEDICINE DATE: 05/07/18 TIME: 1030 SUBJECTIVE: Patient seen and examined. feels a bit better. pain better. happy with po water. PHYSICAL EXAM: Vital Signs: Reviewed. Hr still high. rr still high but more tolerable. 25L and 50% Uout up Neurologic: awake, communicating, little diaphoretic HEENT: perrl, eomi Cardiovascular: tachy, no m Respiratory: less labored but still fast. better overall aeration. Abdomen: obese, soft, less discomfort Extremities: warm, + edema LABS: Reviewed. IMAGING: Reviewed. MEDICATIONS: Reviewed. ASSESSMENT: 42 F Acute pancreatitis Acute hypoxic resp failure Lucas Morbid obesity PLAN: Neurologic: dilaudid flume worker Cardiovascular: Intravascularly better. perfusion maintain but demands still high. avoid secondary injury. dec ivf today. allow her to automobilize as able. f/u hr as may again remain tachy for awhile Respiratory: wob tolerable. wean down on flow as able, but if she is sx then keep. dec Fio2. avoid atelectasis and effusion with good excursion, pulm toliet. use nebs. should avoid intubation needs Gastrointestinal: gi follow up. sips and water today. possible clears tomorrow as not wanting to push too fast. check lipase in am casey and then consider. H2. Renal/Metabolic: LUCAS better but needed considerable fluid. dec now but f/u recover. lytes f/u Infectious Disease: meropenum currently. unlikely to need long but again give short course at this point Hematology: immature marrow response. 1 blast. hopefully just leukemoid reaction but need to follow and await path comment and then consider onc eval if needed tomorrow. vte prophylaxis Endocrine: glucose control adjustments; add lantus. Musculoskeletal: oob. Psych/Social: updated as well. Supportive and preventative care as ordered. SUP: h2 VTE prophylaxis: heparin Disposition: ICU Code Status: Full Critical Care Time: 30min Holly Fletcher DO
--- NOTE | 2018-05-07 11:22 | PN ---
Subjective Date of Service: 05/07/18 Interval History: Patient reports she feels better today with less pain and SOB. She is asking for gatorade. She feels constipated with no BM in several days. Denies fever or chills. No Nausea/vomiting. Objective Active Medications: Acetaminophen (Tylenol Supp*) 650 mg OR Q6H PRN PRN Reason: FEVER/PAIN Albuterol/Ipratropium (Duoneb (Albuterol 2.5 Mg/Ipratropium 0.5 Mg)) 1 neb INH [id number] AWAKE [facility] Stop: 05/07/18 23:01 Albuterol/Ipratropium (Duoneb (Albuterol 2.5 Mg/Ipratropium 0.5 Mg)) 1 neb INH Q4H PRN PRN Reason: SOB/WHEEZING Bisacodyl (Dulcolax Supp*) 10 mg OR DAILY PRN PRN Reason: CONSTIPATION Last Admin: 05/07/18 04:12 Dose: 10 mg Dextrose (D50w Syringe 50 Ml*) 12.5 gm IV PUSH .FOR FS < 60 - SS PRN PRN Reason: FS < 60 Famotidine (Pepcid Iv*) 20 mg IV DAILY [facility] Last Admin: 05/07/18 08:45 Dose: 20 mg Heparin Sodium (Porcine) (Heparin Vial(*)) 5,000 units SUBCUT Q8HR [facility] Last Admin: 05/07/18 05:33 Dose: 5,000 units Hydralazine HCl (Apresoline Iv*) 5 mg IV SLOW PU Q6H PRN PRN Reason: BLOOD PRESSURE Hydromorphone HCl (Dilaudid Inj*) 1 mg IV SLOW PU Q2H PRN PRN Reason: PAIN Last Admin: 05/05/18 00:18 Dose: 1 mg Hydromorphone HCl (Dilaudid Floor Waxer*) 20 mg in 20 mls @ 0 mls/hr IVPB .change Q24H [facility]; As Directed PRN Reason: Protocol Last Admin: 05/06/18 09:51 Dose: 0.2 mls/hr Meropenem (Merrem 1 Gm Premix(*)) 1 gm in 50 mls @ 100 mls/hr IV Q12HR [facility] Last Admin: 05/07/18 08:45 Dose: 100 mls/hr Lactated Ringer's (Lactated Ringers 1000 Ml Bag*) 1,000 mls @ 75 mls/hr IV PER RATE LUANA Insulin Glargine (Lantus(*)) 15 units SUBCUT ONCE ONE Stop: 05/07/18 12:01 Insulin Human Lispro (Humalog*) 0 units SUBCUT ACHS LUANA PRN Reason: Protocol Last Admin: 05/07/18 08:44 Dose: 6 unit Ondansetron HCl (Zofran Odt Tab*) 4 mg SL Q6H PRN PRN Reason: NAUSEA/VOMITING Last Admin: 05/06/18 21:11 Dose: 4 mg Vital Signs - 8 hr 05/07/18 05/07/18 05/07/18 03:59 04:00 04:45 Temperature 100.2 F Pulse Rate 126 Respiratory 28 25 26 Rate Blood Pressure 161/107 (mmHg) O2 Sat by Pulse 100 Oximetry 05/07/18 05/07/18 05/07/18 05:00 05:01 05:02 Temperature 100.0 F 100.0 F Pulse Rate 130 127 Respiratory 30 22 22 Rate Blood Pressure 156/94 (mmHg) O2 Sat by Pulse 100 100 Oximetry 05/07/18 05/07/18 05/07/18 06:00 07:00 07:01 Temperature 100.0 F 100.0 F 100.0 F Pulse Rate 137 125 123 Respiratory 28 18 23 Rate Blood Pressure 160/108 142/98 (mmHg) O2 Sat by Pulse 100 100 100 Oximetry 05/07/18 05/07/18 05/07/18 08:00 09:00 09:26 Temperature 99.7 F 100.2 F Pulse Rate 125 Respiratory 24 19 19 Rate Blood Pressure 156/113 167/106 (mmHg) O2 Sat by Pulse 100 Oximetry Oxygen Devices in Use Now: High Flow Heated Nasal Cannula Appearance: obese 42 yo female sitting up in a chair A+Ox3, appears comfortable Eyes: PERRLA Ears/Nose/Mouth/Throat: Mucous Membranes Moist Respiratory: Symmetrical Chest Expansion and Respiratory Effort, Clear to Auscultation Cardiovascular: - - tachycardic Abdominal: - - obese, distended, soft, mild tenderness (much improved from yesterday) Extremities: No Clubbing, Cyanosis Skin: No Rash or Ulcers, No Nodules or Sclerosis Neurological: Alert and Oriented x 3, NL Sensation, NL Gait, NL Muscle Strength and Tone Lines/Tubes/Other Access: Clean, Dry and Intact Godoy, Clean, Dry and Intact Peripheral IV Nutrition: Taking PO's Result Diagrams: 05/07/18 03:30 05/07/18 06:43 Additional Lab and Data: Microbiology and Other Data: Microbiology 05/04/18 15:23 Blood Venous Aerobic Blood Culture - Preliminary No Growth Day 1 05/04/18 15:23 Blood Venous Anaerobic Blood Culture - Preliminary No Growth Day 1 05/04/18 11:49 Blood Venous Aerobic Blood Culture - Preliminary No Growth Day 1 05/04/18 11:49 Blood Venous Anaerobic Blood Culture - Preliminary No Growth Day 1 Assess/Plan/Problems-Billing Assessment: 42 yo female PMH morbid obesity with ~6 months of epigastric discomfort often correlated food intake p/w acute epigastric pain and elevated lipase concerning for acute pancreatitis of undetermined etiology. No gallstones seen on RUQ Ultrasound or CT abd/pelvis with IV contrast. No necrosis noted. - Patient Problems (1) Acute pancreatitis Comment: Unclear etiology of pancreatitis suspicion is she passed gallstone. No e/o gall bladder pathology. Initially normal of LFTs with only slight increase since admission, cholestatic pattern with alk phos and elevated bili. IgG 4 wnl. CARLOS negative Appreciate GI recommendations Appreciate Greenhouse Manager consult - discussed case with Dr. Fletcher Decrease IVFs LR @ 75 ml/hr pain control, continue dilaudid sales performance manager (using less frequently today) meropenem started empirically on admission given her leukocytosis, tachycardia, and pain, will continue at this time Blood cx NTD. Urine cx Negative. Ok to drink water and advance to clears tomorrow if tolerating (2) ARF (acute renal failure) Comment: -Improving. Possibly secondary to IV contrast vs sepsis. urine output improving. urine cx negative. - Strict I+Os continue placement of godoy catheter (3) Leukocytosis Comment: Improving 2/2 pancreatitis. (4) Hypoxia Comment: - Requiring Vapotherm, oxygen demand improving. Titrate Vapotherm as tolerates. - Pulmonary tolieting. - Encourage mobilization (5) Leukemoid reaction Comment: noted to have 1+ Blast on labs this am, possible leukomoid reaction. Will discuss with Heme/Onc in am. Repeat labs in am. (6) Hyperglycemia Comment: FSBG Q6hr with lispro high dose SSI. Patient with new diagnosis of diabetes mellitus (A1C 7.9) and will need new medications or at least alot of education and lifestyle modification prior and after discharge. Has not seen doctor in many years. (7) Hypertension Comment: reports prior diagnosis but no meds at home. Continue to monitor - blood pressures improving. She may need HTN agent if consistently high. No signs of HF (8) Tachycardia Comment: 2/2 pancreatitis. EKG: NSR (9) Hypothyroidism Comment: - Hx of hypothyroidism but stopped taking medication several years ago d/t lack of insurance. No need for supplementation at this time. (10) DVT prophylaxis Comment: HSQ (11) Full code status Status and Disposition: medicine inpatient. Continue ICCU monitoring.
[2018-05-07] MEDS: Albuterol/Ipratropium NEB.SOL* Albuterol 2.5 MG/Ipratropium 0.5 MG 3 ML INH SCH ×4 (11:26→23:20)
[2018-05-07] MEDS ORDERED: Insulin GLARGINE(*) 1 UNITS UNIT SUBCUT ONE (12:00)
[2018-05-08 05:16] LABS: Hematocrit 32 % (35-47); Hemoglobin 10.7 g/dl (12.0-16.0); Mean Corpuscular HGB Conc 33 g/dl (31-36); Mean Corpuscular Hemoglobin 30 pg (27-31); Mean Corpuscular Volume 90 fL (80-97); Mean Platelet Volume 9.5 um3 (7.4-10.4); Platelet Count 160 10^3/ul (150-450); Red Blood Count 3.57 10^6/ul (4.0-5.4); Red Cell Distribution Width 14 % (10.5-15); White Blood Count 14.6 10^3/ul (3.5-10.8)
[2018-05-08 05:21] LABS: ABS Basophils 0 10^3/ul (0-0.2); ABS Eosinophils 0.1 10^3/ul (0-0.6); ABS Lymphocytes 0.9 10^3/ul (1.0-4.8); ABS Neutrophils 12.6 10^3/ul (1.5-7.7)
[2018-05-08 05:33] LABS: EGFR Non-African American 53.3 (>60)
[2018-05-08 05:56] LABS: Monocytes % 4 % (0-7)
[2018-05-08] MEDS: Heparin VIAL(*) 5000 UNITS/ML VIAL (FIVE THOUSAND) SUBCUT SCH ×3 (06:31→22:06)
[2018-05-08] MEDS: Insulin LISPRO* 1 UNITS UNIT SUBCUT SCH ×4 (08:03→22:06)
[2018-05-08] MEDS: Meropenem 1 GM PREMIX(*) 1 GM/50 ML BAG IV SCH ×2 (09:33→22:07)
[2018-05-08] MEDS: Famotidine IV* 10 MG/ML 2 ML (20 mg) IV SCH (09:34)
--- NOTE | 2018-05-08 11:23 | PN ---
Subjective Date of Service: 05/08/18 Interval History: Patient reporting she is feeling much better today. Small BM this morning. She would like to advance her diet today. Little abdominal pain in which she relates to "more of a constipated feeling different from the pancreatitis pain" . 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 No fevers or chills. No nausea. Denies SOB today and feels that her breathing has greatly improved. Feels steady on her feet. Would like the godoy removed as it feels she cannot have a BM. Discussed diabetes education with patient and . Pt reports many of her family members have diabetes. She is interested in [facility] and agrees to "try to change diet" but during the conversation she was looking at her cell phone and closing her eyes Objective Active Medications: Acetaminophen (Tylenol Supp*) 650 mg [place] Q6H PRN PRN Reason: FEVER/PAIN Albuterol/Ipratropium (Duoneb (Albuterol 2.5 Mg/Ipratropium 0.5 Mg)) 1 neb INH Q4H PRN PRN Reason: SOB/WHEEZING Bisacodyl (Dulcolax Supp*) 10 mg NJ DAILY PRN PRN Reason: CONSTIPATION Last Admin: 05/07/18 20:40 Dose: 10 mg Dextrose (D50w Syringe 50 Ml*) 12.5 gm IV PUSH .FOR FS < 60 - SS PRN PRN Reason: FS < 60 Famotidine (Pepcid Iv*) 20 mg IV DAILY [facility] Last Admin: 05/08/18 09:34 Dose: 20 mg Heparin Sodium (Porcine) (Heparin Vial(*)) 5,000 units SUBCUT Q8HR [facility] Last Admin: 05/08/18 06:31 Dose: 5,000 units Hydralazine HCl (Apresoline Iv*) 5 mg IV SLOW PU Q6H PRN PRN Reason: BLOOD PRESSURE Hydromorphone HCl (Dilaudid Inj*) 1 mg IV SLOW PU Q2H PRN PRN Reason: PAIN Last Admin: 05/05/18 00:18 Dose: 1 mg Hydromorphone HCl (Dilaudid Assistant Professor Of Biochemistry*) 20 mg in 20 mls @ 0 mls/hr IVPB .change Q24H [facility]; As Directed PRN Reason: Protocol Last Admin: 05/06/18 09:51 Dose: 0.2 mls/hr Meropenem (Merrem 1 Gm Premix(*)) 1 gm in 50 mls @ 100 mls/hr IV Q12HR [facility] Last Admin: 05/08/18 09:33 Dose: 100 mls/hr Insulin Human Lispro (Humalog*) 0 units SUBCUT ACHS [facility] PRN Reason: Protocol Last Admin: 05/08/18 08:03 Dose: 6 unit Ondansetron HCl (Zofran Odt Tab*) 4 mg SL Q6H PRN PRN Reason: NAUSEA/VOMITING Last Admin: 05/06/18 21:11 Dose: 4 mg Vital Signs - 8 hr 05/08/18 05/08/18 05/08/18 04:00 05:00 05:56 Temperature 99.7 F 99.9 F Pulse Rate 114 115 Respiratory 19 22 32 Rate Blood Pressure 137/83 132/82 (mmHg) O2 Sat by Pulse 98 86 Oximetry 05/08/18 05/08/18 05/08/18 06:00 06:09 07:00 Temperature 99.9 F 99.9 F 99.9 F Pulse Rate 119 119 121 Respiratory 20 22 23 Rate Blood Pressure 147/89 (mmHg) O2 Sat by Pulse 98 97 100 Oximetry 05/08/18 05/08/18 05/08/18 07:21 08:00 08:30 Temperature 100.0 F 99.9 F Pulse Rate 116 120 114 Respiratory 19 30 22 Rate Blood Pressure 157/104 148/104 (mmHg) O2 Sat by Pulse 98 96 97 Oximetry 05/08/18 05/08/18 05/08/18 09:00 10:00 11:00 Temperature 99.9 F 99.9 F 100.2 F Pulse Rate 118 114 131 Respiratory 19 15 16 Rate Blood Pressure 156/109 153/103 155/100 (mmHg) O2 Sat by Pulse 96 99 100 Oximetry Oxygen Devices in Use Now: Nasal Cannula Appearance: obese female sitting up in a chair in NAD. A+O x3 Eyes: No Scleral Icterus, PERRLA Ears/Nose/Mouth/Throat: NL Teeth, Lips, Gums, Mucous Membranes Moist Respiratory: Symmetrical Chest Expansion and Respiratory Effort, Clear to Auscultation Cardiovascular: NL Sounds; No Murmurs; No JVD, RRR, - - tachycardiac, Abdominal: NL Sounds; No Tenderness; No Distention, - - obese, soft, NL BS, nontender, no guarding Extremities: No Clubbing, Cyanosis, - - 1+ LE edema to extremities Skin: No Rash or Ulcers, No Nodules or Sclerosis Neurological: Alert and Oriented x 3, NL Sensation, NL Muscle Strength and Tone Lines/Tubes/Other Access: Clean, Dry and Intact Peripheral IV Nutrition: Taking PO's Result Diagrams: 05/08/18 05:06 05/08/18 05:06 Additional Lab and Data: Microbiology and Other Data: Microbiology 05/04/18 15:23 Blood Venous Aerobic Blood Culture - Preliminary No Growth Day 1 05/04/18 15:23 Blood Venous Anaerobic Blood Culture - Preliminary No Growth Day 1 05/04/18 11:49 Blood Venous Aerobic Blood Culture - Preliminary No Growth Day 1 05/04/18 11:49 Blood Venous Anaerobic Blood Culture - Preliminary No Growth Day 1 Assess/Plan/Problems-Billing Assessment: 42 yo female PMH morbid obesity with ~6 months of epigastric discomfort often correlated food intake p/w acute epigastric pain and elevated lipase concerning for acute pancreatitis of undetermined etiology. No gallstones seen on RUQ Ultrasound or CT abd/pelvis with IV contrast. No necrosis noted. - Patient Problems (1) Acute pancreatitis Comment: Sepsis resolved. Overall much improvement in the last couple days Unclear etiology of pancreatitis suspicion is she passed gallstone. No e/o gall bladder pathology. Initially normal of LFTs with only slight increase since admission, cholestatic pattern with alk phos and elevated bili. IgG 4 wnl. CARLOS negative Appreciate GI recommendations Appreciate Medical Receptionist Biller consult - discussed case with Dr. Fletcher daily since admission to ICU. Off High Flow today. 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 Urine cx Negative. Advance to clears today (2) ARF (acute renal failure) Comment: -Improving. Possibly secondary to IV contrast vs sepsis. urine output improving. urine cx negative. - Ok to DC godoy catheter (3) Leukocytosis Comment: Improving - now has bands but overall improving - continue to monitor 2/2 pancreatitis. (4) Hypoxia Comment: - Off Vapotherm, currently on Sultur - doing well - Pulmonary tolieting. - Encourage mobilization (5) Leukemoid reaction Comment: noted to have 1+ Blast on labs yesterday, resolved today, possible leukomoid reaction. Heme/Onc consult pending (6) Hyperglycemia Comment: FSBG ACHS with lispro high dose SSI, Lantus added QHS Patient with new diagnosis of diabetes mellitus (A1C 7.9) and will need new medications or at least alot of education and lifestyle modification prior and after discharge. Has not seen doctor in many years. Diabetes education today given for 15 minutes (7) Hypertension Comment: reports prior diagnosis but no meds at home. Continue to monitor - blood pressures improving. She may need HTN agent prior to DC. No signs of HF. Per Medical Receptionist Biller ok to hold off on agent at this time. (8) Tachycardia Comment: 2/2 pancreatitis. EKG: NSR (9) Hypothyroidism Comment: - Hx of hypothyroidism but stopped taking medication several years ago d/t lack of insurance. No need for supplementation at this time. (10) DVT prophylaxis Comment: HSQ (11) Full code status Status and Disposition: medicine inpatient. Continue ICCU monitoring.
--- NOTE | 2018-05-08 12:22 | CONS ---
AMENDED REPORT NOW INCLUDES DATE OF CONSULT - ESIGNED BEFORE ADJUSTMENT CONSULTATION REPORT: DATE OF CONSULT: 05/08/18 REASON FOR CONSULTATION: Blasts on peripheral blood film. IDENTIFICATION: A 42-year-old female with acute pancreatitis. HISTORY OF PRESENT ILLNESS: This is a 42-year-old female with a history of morbid obesity as well as multiple medical problems who presented on 05/04/18 with acute pancreatitis. She had recent acceleration of back and sciatic pain, and had been seen in the ER prior to this admission. Then presented with 9/10 epigastric pain that was acute on chronic. She had labs including a lipase of 2697, ultrasound without any evidence of gallstones and a CT abdomen and pelvis consistent with acute pancreatitis, though without necrosis or hemorrhage. She has been managed n.p.o. with gradual improvement in pain and is taking clear liquids today. On presentation, she had a white count of 13,800 up to 23,000 on 05/06/18 and now down to 14,600 today. Consistent left shift and on CBC yesterday, there was question of blasts spread out on her peripheral smear as well as some myelocytes. PAST MEDICAL HISTORY: 1. Irritable bowel syndrome. 2. Hypertension. 3. High cholesterol. 4. Depression. 5. Anxiety. 6. GERD. 7. Chronic back pain with scoliosis and disk disease. 8. Obesity. 9. Cervical dysplasia, managed several years ago with biopsies. Last Pap smear was negative but done over 6 years ago. PAST SURGICAL HISTORY: Cervical biopsies, and D and C. CURRENT MEDICATIONS: 1. Just vitamins and supplemental iron as an outpatient. 2. She had been given Percocet and prednisone for acute back pain. ALLERGIES: CEFACLOR, LASIX, NATURAL RUBBER, PENICILLINS, SULFA, and BIAXIN. FAMILY HISTORY: Father had diabetes, hypertension, hyperlipidemia, back pain, and Camarena palsy. Diabetes runs diffusely in the family. Grandfather on the father's side had heart disease and bypass surgery. SOCIAL HISTORY: She has no PCP, no health insurance for the last several years. She moved from [place] to [place] 7 months ago. She is . She smokes occasionally, several cigarettes a day, and occasional alcohol use. REVIEW OF SYSTEMS: Feeling better today. No fevers, chills or night sweats. She has had some cysts in her breast and on her skin. Breathing is fine. No cardiac symptoms. GI: As above. : Polyuria in the hospital, otherwise negative. Musculoskeletal: Chronic back pain and then sciatic pain prior to admission. Neurologic: Negative. PHYSICAL EXAM: BP 153/103, temperature 99.9, heart rate 116, respirations 15, oxygen 99%. HEENT: Mucosa moist. No lesions. No cervical or supraclavicular lymphadenopathy. Lungs: Clear to auscultation. Heart: Regular rate and rhythm. S1, S2. No murmurs or gallops. Abdomen: Obese, otherwise nonspecific exam. Extremities: No clubbing, cyanosis or edema. Exam otherwise limited in ICU. DIAGNOSTIC STUDIES/LAB DATA: CBC: White count as noted above, consistently elevated 14,0000 to 20,000. Hemoglobin 10.7, down from 15.9 on admission. MCV is 90, RDW 14, platelets are 160,000 with MPV of 9.5. Manual blood film was reviewed today. She has acute leukemoid reaction predominated by neutrophils, activated monocytes and lymphocytes. Scattered metamyelocytes, no blasts. Red cell morphology and platelets normal. Platelets morphology normal consistent with high production. ASSESSMENT AND PLAN: This is a 42-year-old female presenting with pancreatitis and leukocytosis, most consistent with acute leukemoid reaction. We have no prior CBC's, so cannot rule out underlying myeloproliferative disease, but this is unlikely. 1. No further evaluation at this time, but follow white count during admission for pancreatitis. 2. She should have a followup CBC in 3 to 4 weeks either in our office or with primary care. If white count remains elevated, we will then send additional studies including FISH for chronic myelogenous leukemia, JAK2 and myeloproliferative panel. 3. We will plan followup as outpatient if needed, reconsult during this admission for any additional questions or concerns. [id number]/[facility] #: [id number] [facility], E[facility] AND THROAT HOSPITALLeticia
[2018-05-08] MEDS: Albuterol/Ipratropium NEB.SOL* Albuterol 2.5 MG/Ipratropium 0.5 MG 3 ML INH PRN (17:03)
[2018-05-08] MEDS ORDERED: HYDROmorphone PCA* 20 MG/20 ML PCA.SYRING IVPB SCH (18:23)
[2018-05-08] MEDS: Polyethylene Glycol 3350* 17 GM PACKET PO SCH (22:06)
[2018-05-08] MEDS: Insulin GLARGINE(*) 1 UNITS UNIT SUBCUT SCH (22:06)
[2018-05-09] MEDS: Heparin VIAL(*) 5000 UNITS/ML VIAL (FIVE THOUSAND) SUBCUT SCH ×3 (05:39→21:06)
[2018-05-09 06:05] LABS: Hematocrit 31 % (35-47); Hemoglobin 10.1 g/dl (12.0-16.0); Mean Corpuscular HGB Conc 33 g/dl (31-36); Mean Corpuscular Hemoglobin 30 pg (27-31); Mean Corpuscular Volume 92 fL (80-97); Mean Platelet Volume 9.3 um3 (7.4-10.4); Platelet Count 134 10^3/ul (150-450); Red Cell Distribution Width 14 % (10.5-15); White Blood Count 16.6 10^3/ul (3.5-10.8)
[2018-05-09 06:25] LABS: EGFR Non-African American 73.3 (>60)
[2018-05-09 07:33] LABS: ABS Basophils 0 10^3/ul (0-0.2); ABS Eosinophils 0.2 10^3/ul (0-0.6); ABS Lymphocytes 0.9 10^3/ul (1.0-4.8); ABS Monocytes 1.3 10^3/ul (0-0.8); ABS Neutrophils 14.2 10^3/ul (1.5-7.7)
[2018-05-09 07:35] LABS: Monocytes % 8 % (0-7)
[2018-05-09] MEDS: Meropenem 1 GM PREMIX(*) 1 GM/50 ML BAG IV SCH ×2 (08:04→21:00)
[2018-05-09] MEDS: Insulin LISPRO* 1 UNITS UNIT SUBCUT SCH ×4 (08:04→21:05)
[2018-05-09] MEDS: Famotidine IV* 10 MG/ML 2 ML (20 mg) IV SCH (08:04)
--- NOTE | 2018-05-09 10:43 | PN ---
Subjective Date of Service: 05/09/18 Interval History: Patient seen and examined. States pain is down to a 1/10, used INTELLIGENCE [employer]PLICATION[employer] 5 times overnight. Denies n/v/d, tolerating clears. Requested godoy to be DC today, now voiding freely per patient.States no SOB at present. Objective Active Medications: Acetaminophen (Tylenol Supp*) 650 mg SD Q6H PRN PRN Reason: FEVER/PAIN Albuterol/Ipratropium (Duoneb (Albuterol 2.5 Mg/Ipratropium 0.5 Mg)) 1 neb INH Q4H PRN PRN Reason: SOB/WHEEZING Last Admin: 05/08/18 17:03 Dose: 1 neb Bisacodyl (Dulcolax Supp*) 10 mg SD DAILY PRN PRN Reason: CONSTIPATION Last Admin: 05/07/18 20:40 Dose: 10 mg Dextrose (D50w Syringe 50 Ml*) 12.5 gm IV PUSH .FOR FS < 60 - SS PRN PRN Reason: FS < 60 Famotidine (Pepcid Iv*) 20 mg IV DAILY [facility] Last Admin: 05/09/18 08:04 Dose: 20 mg Heparin Sodium (Porcine) (Heparin Vial(*)) 5,000 units SUBCUT Q8HR [facility] Last Admin: 05/09/18 05:39 Dose: 5,000 units Hydralazine HCl (Apresoline Iv*) 5 mg IV SLOW PU Q6H PRN PRN Reason: BLOOD PRESSURE Hydromorphone HCl (Dilaudid Injic*) 1 mg IV SLOW PU Q3H PRN PRN Reason: abdominal pain Meropenem (Merrem 1 Gm Premix(*)) 1 gm in 50 mls @ 100 mls/hr IV Q12HR [facility] Last Admin: 05/09/18 08:04 Dose: 100 mls/hr Insulin Glargine (Lantus(*)) 10 units SUBCUT Q24H [facility] Last Admin: 05/08/18 22:06 Dose: 10 units Insulin Human Lispro (Humalog*) 0 units SUBCUT ACHS [facility] PRN Reason: Protocol Last Admin: 05/09/18 08:04 Dose: 6 unit Ondansetron HCl (Zofran Odt Tab*) 4 mg SL Q6H PRN PRN Reason: NAUSEA/VOMITING Last Admin: 05/06/18 21:11 Dose: 4 mg Polyethylene Glycol/Electrolytes (Miralax*) 17 gm PO BEDTIME [facility] Last Admin: 05/08/18 22:06 Dose: 17 gm Vital Signs - 8 hr 05/09/18 05/09/18 05/09/18 03:14 03:26 06:29 Temperature 98.1 F Pulse Rate 126 Respiratory 22 22 Rate Blood Pressure 177/93 168/72 (mmHg) O2 Sat by Pulse 100 Oximetry 05/09/18 07:42 Temperature 97.6 F Pulse Rate 107 Respiratory 17 Rate Blood Pressure 157/91 (mmHg) O2 Sat by Pulse 100 Oximetry Oxygen Devices in Use Now: High Flow Nasal Cannula Appearance: Alert, NAD Eyes: No Scleral Icterus, PERRLA Ears/Nose/Mouth/Throat: Mucous Membranes Moist Neck: NL Appearance and Movements; NL JVP, Trachea Midline Respiratory: Symmetrical Chest Expansion and Respiratory Effort, Clear to Auscultation Cardiovascular: NL Sounds; No Murmurs; No JVD, RRR, No Edema Abdominal: NL Sounds; No Tenderness; No Distention, No Hepatosplenomegaly Skin: No Rash or Ulcers, No Nodules or Sclerosis Neurological: Alert and Oriented x 3, NL Gait, NL Muscle Strength and Tone Nutrition: Taking PO's, - - clears Result Diagrams: 05/09/18 05:43 05/09/18 05:43 Additional Lab and Data: Microbiology and Other Data: Microbiology 05/04/18 15:23 Blood Venous Aerobic Blood Culture - Preliminary No Growth Day 1 05/04/18 15:23 Blood Venous Anaerobic Blood Culture - Preliminary No Growth Day 1 05/04/18 11:49 Blood Venous Aerobic Blood Culture - Preliminary No Growth Day 1 05/04/18 11:49 Blood Venous Anaerobic Blood Culture - Preliminary No Growth Day 1 Assess/Plan/Problems-Billing Assessment: 42 yo female H morbid obesity with ~6 months of epigastric discomfort often correlated food intake p/w acute epigastric pain and elevated lipase concerning for acute pancreatitis of undetermined etiology. No gallstones seen on RUQ Ultrasound or CT abd/pelvis with IV contrast. No necrosis noted. - Patient Problems (1) Acute pancreatitis Code(s): K85.90 - ACUTE PANCREATITIS WITHOUT NECROSIS OR INFECTION, UNSP SNOMED Code(s): 085434438 Comment: - Sepsis and tachycardia resolved - Slight bump up in WBCs again today, continue meropenem - Etiology unclear, triglycerides NL, LFTs improved, may have passed a gallstone? - Tolerating CLD - Will DC INTELLIGENCE APPLICATIONS pump and place on analgesics Q3H as neede - Cultures NTD (2) Abdominal pain Code(s): R10.9 - UNSPECIFIED ABDOMINAL PAIN SNOMED Code(s): 08006850 Comment: - 2/2 pancreatitis - Resolving, DC [employer] pump (3) Hyperglycemia Code(s): R73.9 - HYPERGLYCEMIA, UNSPECIFIED SNOMED Code(s): 40472900 Comment: - FSBG ACHS with lispro high dose SSI, Lantus added QHS - Patient with new diagnosis of diabetes mellitus (A1C 7.9), will need [facility] (4) Hypertension Code(s): I10 - ESSENTIAL (PRIMARY) HYPERTENSION SNOMED Code(s): 45192667 Comment: - Reports prior diagnosis but no meds at home - Trial amlodipine today (5) Hypothyroidism Current Visit: Yes Status: Acute Code(s): E03.9 - HYPOTHYROIDISM, UNSPECIFIED SNOMED Code(s): 77742261 Comment: - Hx of hypothyroidism but stopped taking medication several years ago d/t lack of insurance. No need for supplementation at this time. (6) Hypoxia Code(s): R09.02 - HYPOXEMIA SNOMED Code(s): 974299115 Comment: - Off Vapotherm, on [place] - Will get walking sats off O2 (7) Leukocytosis Code(s): D72.829 - ELEVATED WHITE BLOOD CELL COUNT, UNSPECIFIED SNOMED Code(s) : 372008185 Comment: - Was improving then slight bump us today - Afebrile, abdominal pain improved - Continue meropenem and monitor (8) DVT prophylaxis Code(s): SUD1540 - SNOMED Code(s): 587198903 Comment: - HSQ (9) Full code status Code(s): Z78.9 - OTHER SPECIFIED HEALTH STATUS SNOMED Code(s): 638398889 Status and Disposition: Remain inpatient. Course: Progressing
[2018-05-09] MEDS ORDERED: amLODIPine TAB* 5 MG PO ONE (10:47)
[2018-05-09] MEDS: Albuterol/Ipratropium NEB.SOL* Albuterol 2.5 MG/Ipratropium 0.5 MG 3 ML INH PRN (10:52)
[2018-05-09] MEDS: HYDROmorphone INJ* 1 MG/ML CARPUJECT SYRINGE IV SLOW PU PRN ×3 (15:13→23:02)
--- NOTE | 2018-05-09 16:03 | CONSULT ---
Subjective Reason for Visit: Acute pancreatitis Admission Date: 05/05/18 Glucose Level On Admission: 193 History Of Present Illness: Ms. Chambers is a 42 year old female, admitted for acute pancreatitis, diagnosed with type II diabetes upon admission with BG 193 and Hgb A1C 7.9%. She gives a history of being uninsured and therefore without medical care for the past seven years. She had been experiencing polyuria and polydipsia intermittently for the past several months, but ignored the symptoms. She gives a past medical history of GERD, hypertension, hyperlipidemia, IBS, chronic back pain, hypothyroidism, and morbid obesity. She has a family history of type II diabetes in multiple family members. Patient History Surgical History: None Surgery Procedure, Year, and Place: NONE Past Family History: Type II diabetes (multiple family members), hypertension, hyperlipidemia, hypothyroidism Lives With: Family Marital Status: Social Support: Friend present at bedside Preferred/Primary Language: Lithuanian Employed/Unemployed: Unemployed Hx Tobacco Use: No Review Of Systems - Review of Systems Cardiovascular: - - c/o edema Abdominal: - - Abdominal pain Endocrine: - - Polyuria, polydipsia Objective Allergies Allergy/AdvReac Type Severity Reaction Status Date / Time cefaclor [From Ceclor] Allergy Severe Hives Verified 05/02/18 04:05 Latex, Natural Rubber Allergy Severe Hives Verified 05/02/18 04:05 loracarbef [From Lorabid] Allergy Severe Hives Verified 05/02/18 04:05 Penicillins Allergy Severe Difficulty Verified 05/02/18 04:05 Breathing Sulfa (Sulfonamide Allergy Severe Hives Verified 05/02/18 04:05 Antibiotics) clarithromycin [From Biaxin] Allergy Intermediate Headache Verified 05/02/18 04: 05 Home Medications Medication Instructions Recorded Confirmed Type oxyCODONE/Acetamin 5/325 MG* 1 tab PO Q6H PRN #14 tab MDD 4 05/02/18 05/04/18 Rx [Percocet 5/325 TAB*] predniSONE TAB* [Deltasone 20 MG 40 mg PO DAILY #10 tab 05/02/18 05/04/18 Rx TAB*] Hospital Medications: Current Medications Acetaminophen (Tylenol Supp*) 650 mg HI Q6H PRN PRN Reason: FEVER/PAIN Albuterol/Ipratropium (Duoneb (Albuterol 2.5 Mg/Ipratropium 0.5 Mg)) 1 neb INH Q4H PRN PRN Reason: SOB/WHEEZING Last Admin: 05/09/18 10:52 Dose: 1 neb Bisacodyl (Dulcolax Supp*) 10 mg HI DAILY PRN PRN Reason: CONSTIPATION Last Admin: 05/07/18 20:40 Dose: 10 mg Dextrose (D50w Syringe 50 Ml*) 12.5 gm IV PUSH .FOR FS < 60 - SS PRN PRN Reason: FS < 60 Famotidine (Pepcid Iv*) 20 mg IV DAILY [facility] Last Admin: 05/09/18 08:04 Dose: 20 mg Heparin Sodium (Porcine) (Heparin Vial(*)) 5,000 units SUBCUT Q8HR [facility] Last Admin: 05/09/18 13:01 Dose: 5,000 units Hydralazine HCl (Apresoline Iv*) 5 mg IV SLOW PU Q6H PRN PRN Reason: BLOOD PRESSURE Hydromorphone HCl (Dilaudid Injic*) 1 mg IV SLOW PU Q3H PRN PRN Reason: abdominal pain Last Admin: 05/09/18 15:13 Dose: 1 mg Meropenem (Merrem 1 Gm Premix(*)) 1 gm in 50 mls @ 100 mls/hr IV Q12HR [facility] Stop: 05/10/18 23:59 Last Admin: 05/09/18 08:04 Dose: 100 mls/hr Insulin Glargine (Lantus(*)) 10 units SUBCUT Q24H [facility] Last Admin: 05/08/18 22:06 Dose: 10 units Insulin Human Lispro (Humalog*) 0 units SUBCUT ACHS [facility] PRN Reason: Protocol Last Admin: 05/09/18 11:46 Dose: 3 unit Ondansetron HCl (Zofran Odt Tab*) 4 mg SL Q6H PRN PRN Reason: NAUSEA/VOMITING Last Admin: 05/06/18 21:11 Dose: 4 mg Polyethylene Glycol/Electrolytes (Miralax*) 17 gm PO BEDTIME [facility] Last Admin: 05/08/18 22:06 Dose: 17 gm Lab Data: Sodium 135 mmol/L (139-145) L 05/09/18 05:43 Potassium TNP 05/09/18 05:43 BUN 20 mg/dL (6-24) 05/09/18 05:43 Creatinine 0.85 mg/dL (0.51-0.95) 05/09/18 05:43 Hemoglobin A1c 7.9 % (4.0-5.6) H 05/04/18 11:50 Calcium 8.8 mg/dL (8.6-10.3) 05/09/18 05:43 Magnesium 1.9 mg/dL (1.9-2.7) 05/09/18 05:43 AST TNP 05/09/18 05:43 ALT 28 U/L (7-52) 05/09/18 05:43 Triglycerides 100 mg/dL 05/04/18 09:58 Cholesterol 195 mg/dL 05/04/18 09:58 LDL Cholesterol 119 mg/dL 05/04/18 09:58 Vital Signs: Vital Signs 05/09/18 05/09/18 05/09/18 10:53 11:30 11:35 Temperature 37.4 C Pulse Rate 100 120 128 Respiratory 26 16 Rate Blood Pressure 177/94 (mmHg) O2 Sat by Pulse 98 100 93 Oximetry 05/09/18 05/09/18 15:13 15:34 Temperature 37.4 C Pulse Rate 127 Respiratory 24 22 Rate Blood Pressure 171/95 (mmHg) O2 Sat by Pulse 96 Oximetry Height: 4 ft 11 in Weight: 117 kg Body Mass Index (BMI): 52.0 Physical Exam General Appearance: Positive: Alert, Oriented x3, Obese, No Distress Cardiovascular: Positive: RRR Respiratory: Positive: Labored with Accessory Muscles - slightly labored, O2 via NC Abdomin: Positive: Obese Plan Of Care Diagnosis: 42 year old female with newly diagnosed type II diabetes. Discussed role of lifestyle modification in controlling both diabetes and other weight associated co-morbidities (htn, GERD, hyperlipidemia). Recommend that patient follow up at [facility] as an outpatient for further diabetes education, medically supervised weight loss, lifestyle modification. Education Prior Diabetic Education: No Handouts Provided: CDC Living Well With Diabetes Goals Goals: According to the [place] [employer], the following are your goals for Hemaglobin A1C, Blood Glucose. Hemaglobin A1C * <7.0% for most * <6.5% for "healthy" * <8.0% for "Less Healthy" Blood Glucose * Fasting Blood Glucose: 80-130 mg/dl * 2 Hour Post Prandial Glucose <180 mg/dl
--- NOTE | 2018-05-09 17:24 | RAD ---
INDICATION: Cough and wheeze. COMPARISON: Comparison is made with a prior study from May 06, 2018. TECHNIQUE: Dual-energy PA and lateral views of the chest were obtained. FINDINGS: The heart is within normal limits in size. Mediastinal and hilar contours appear within normal limits. There is a patchy infiltrate at the left lung base and a small left pleural effusion which has progressed from the prior study. There is a moderate dorsal lumbar scoliosis convex toward the left in the dorsal region and toward the right in the lumbar region. IMPRESSION: PATCHY LEFT BASILAR INFILTRATE AND SMALL PLEURAL EFFUSION DEMONSTRATING INTERVAL PROGRESSION.
[2018-05-09] MEDS: Insulin GLARGINE(*) 1 UNITS UNIT SUBCUT SCH (21:05)
[2018-05-09] MEDS: Polyethylene Glycol 3350* 17 GM PACKET PO SCH (21:10)
[2018-05-10] MEDS: HYDROmorphone INJ* 1 MG/ML CARPUJECT SYRINGE IV SLOW PU PRN ×4 (03:02→21:04)
[2018-05-10] MEDS: Heparin VIAL(*) 5000 UNITS/ML VIAL (FIVE THOUSAND) SUBCUT SCH ×3 (05:32→23:13)
[2018-05-10] MEDS: Insulin LISPRO* 1 UNITS UNIT SUBCUT SCH ×4 (08:07→21:07)
[2018-05-10] MEDS: Famotidine IV* 10 MG/ML 2 ML (20 mg) IV SCH (08:07)
[2018-05-10] MEDS: Meropenem 1 GM PREMIX(*) 1 GM/50 ML BAG IV SCH (08:07)
[2018-05-10] MEDS ORDERED: Sodium Phosphate ADULT ENEMA* 118 ml bottle PR ONE (09:23)
[2018-05-10 14:17] LABS: Hematocrit 31 % (35-47); Hemoglobin 10.3 g/dl (12.0-16.0); Mean Corpuscular HGB Conc 33 g/dl (31-36); Mean Corpuscular Hemoglobin 29 pg (27-31); Mean Corpuscular Volume 90 fL (80-97); Mean Platelet Volume 9.5 um3 (7.4-10.4); Platelet Count 164 10^3/ul (150-450); Red Cell Distribution Width 14 % (10.5-15)
[2018-05-10 14:38] LABS: EGFR Non-African American 96.5 (>60)
[2018-05-10 14:40] LABS: ABS Basophils 0.1 10^3/ul (0-0.2); ABS Eosinophils 0.2 10^3/ul (0-0.6); ABS Monocytes 1.8 10^3/ul (0-0.8); ABS Neutrophils 22.4 10^3/ul (1.5-7.7); White Blood Count 25.5 10^3/ul (3.5-10.8)
[2018-05-10 14:42] LABS: Monocytes % 5 % (0-7)
[2018-05-10] MEDS: hydrALAZINE IV* 20 MG/ML VIAL IV SLOW PU PRN ×2 (15:41→21:02)
[2018-05-10] MEDS: Aztreonam (*) 2 GM in NS 0.9% 50 ML* 50 ML IV SCH (16:30)
[2018-05-10] MEDS ORDERED: Magnesium Hydroxide LIQ* 30 ML UDC PO PRN (17:18)
[2018-05-10] MEDS: Albuterol/Ipratropium NEB.SOL* Albuterol 2.5 MG/Ipratropium 0.5 MG 3 ML INH PRN (17:21)
[2018-05-10] MEDS ORDERED: Levofloxacin 750 MG IVPREMIX(* 750 MG/150 ML BAG IVPB SCH (21:00)
[2018-05-10] MEDS: Insulin GLARGINE(*) 1 UNITS UNIT SUBCUT SCH (21:07)
[2018-05-10] MEDS: Polyethylene Glycol 3350* 17 GM PACKET PO SCH (21:08)
[2018-05-11] MEDS: Aztreonam (*) 2 GM in NS 0.9% 50 ML* 50 ML IV SCH ×2 (00:22→09:09)
[2018-05-11] MEDS: HYDROmorphone INJ* 1 MG/ML CARPUJECT SYRINGE IV SLOW PU PRN ×2 (00:56→04:01)
[2018-05-11] MEDS: Heparin VIAL(*) 5000 UNITS/ML VIAL (FIVE THOUSAND) SUBCUT SCH ×2 (05:45→14:11)
[2018-05-11] MEDS ORDERED: HYDROmorphone INJ* 1 MG/ML CARPUJECT SYRINGE IV SLOW PU PRN (07:31)
[2018-05-11] MEDS ORDERED: amLODIPine TAB* 5 MG PO SCH (09:00)
[2018-05-11] MEDS ORDERED: Lisinopril TAB* 5 MG PO SCH (09:00)
[2018-05-11] MEDS: Famotidine IV* 10 MG/ML 2 ML (20 mg) IV SCH (09:09)
[2018-05-11] MEDS: Insulin LISPRO* 1 UNITS UNIT SUBCUT SCH ×3 (09:09→17:34)
[2018-05-11] MEDS: Albuterol/Ipratropium NEB.SOL* Albuterol 2.5 MG/Ipratropium 0.5 MG 3 ML INH PRN (09:13)
[2018-05-11 10:11] LABS: Hematocrit 31 % (35-47); Hemoglobin 10.2 g/dl (12.0-16.0); Mean Corpuscular HGB Conc 33 g/dl (31-36); Mean Corpuscular Hemoglobin 29 pg (27-31); Mean Corpuscular Volume 89 fL (80-97); Mean Platelet Volume 9.3 um3 (7.4-10.4); Platelet Count 168 10^3/ul (150-450); Red Blood Count 3.47 10^6/ul (4.00-5.40); Red Cell Distribution Width 14 % (10.5-15); White Blood Count 25.7 10^3/ul (3.5-10.8)
[2018-05-11 10:40] LABS: ABS Basophils 0.1 10^3/ul (0-0.2); ABS Eosinophils 0.2 10^3/ul (0-0.6); ABS Monocytes 1.7 10^3/ul (0-0.8); ABS Neutrophils 22.7 10^3/ul (1.5-7.7)
--- NOTE | 2018-05-11 10:56 | PN ---
Subjective Date of Service: 05/10/18 Interval History: LATE ENTRY: DATE OF PATIENT EXAMINATION 05/10/2018 Patient seen and examined, appears more comfortable but still unable to wean off O2. States abdominal pain is improving but still has low back pain. Denies n /v, no further complaints. Objective Active Medications: Acetaminophen (Tylenol Supp*) 650 mg NJ Q6H PRN PRN Reason: FEVER/PAIN Albuterol/Ipratropium (Duoneb (Albuterol 2.5 Mg/Ipratropium 0.5 Mg)) 1 neb INH Q4H PRN PRN Reason: SOB/WHEEZING Last Admin: 05/11/18 09:13 Dose: 1 neb Amlodipine Besylate (Norvasc Tab*) 5 mg PO DAILY [facility] Last Admin: 05/11/18 09:09 Dose: 5 mg Bisacodyl (Dulcolax Supp*) 10 mg NJ DAILY PRN PRN Reason: CONSTIPATION Last Admin: 05/07/18 20:40 Dose: 10 mg Dextrose (D50w Syringe 50 Ml*) 12.5 gm IV PUSH .FOR FS < 60 - SS PRN PRN Reason: FS < 60 Famotidine (Pepcid Iv*) 20 mg IV DAILY [facility] Last Admin: 05/11/18 09:09 Dose: 20 mg Heparin Sodium (Porcine) (Heparin Vial(*)) 5,000 units SUBCUT Q8HR [facility] Last Admin: 05/11/18 05:45 Dose: 5,000 units Hydralazine HCl (Apresoline Iv*) 5 mg IV SLOW PU Q6H PRN PRN Reason: BLOOD PRESSURE Last Admin: 05/10/18 21:02 Dose: 5 mg Hydromorphone HCl (Dilaudid Injic*) 1 mg IV SLOW PU Q6H PRN PRN Reason: abdominal pain Last Admin: 05/11/18 09:10 Dose: 1 mg Levofloxacin/Dextrose (Levaquin 750 Mg Ivpremix(*)) 750 mg in 150 mls @ 100 mls /hr IVPB Q24H [facility] Stop: 05/12/18 22:29 Last Admin: 05/10/18 21:07 Dose: 100 mls/hr Aztreonam 2 gm/ Sodium (Chloride) 50 mls @ 200 mls/hr IV Q8H [facility] Last Admin: 05/11/18 09:09 Dose: 200 mls/hr Insulin Glargine (Lantus(*)) 10 units SUBCUT Q24H [facility] Last Admin: 05/10/18 21:07 Dose: 10 units Insulin Human Lispro (Humalog*) 0 units SUBCUT ACHS [facility] PRN Reason: Protocol Last Admin: 05/11/18 09:09 Dose: 3 unit Lisinopril (Prinivil Tab*) 5 mg PO DAILY [facility] Last Admin: 05/11/18 09:09 Dose: 5 mg Magnesium Hydroxide (Milk Of Magnesia Liq*) 30 ml PO Q6H PRN PRN Reason: DYSPEPSIA Ondansetron HCl (Zofran Odt Tab*) 4 mg SL Q6H PRN PRN Reason: NAUSEA/VOMITING Last Admin: 05/06/18 21:11 Dose: 4 mg Polyethylene Glycol/Electrolytes (Miralax*) 17 gm PO BEDTIME [facility] Last Admin: 05/10/18 21:08 Dose: Not Given Vital Signs - 8 hr 05/11/18 05/11/18 05/11/18 03:29 03:43 04:01 Temperature 97.5 F Pulse Rate 117 115 Respiratory 18 16 24 Rate Blood Pressure 169/100 (mmHg) O2 Sat by Pulse 97 97 Oximetry 05/11/18 05/11/18 05/11/18 05:38 07:07 09:07 Temperature 98.3 F Pulse Rate 116 Respiratory 20 20 32 Rate Blood Pressure 148/89 (mmHg) O2 Sat by Pulse 98 Oximetry 05/11/18 05/11/18 05/11/18 09:10 09:15 10:02 Temperature Pulse Rate 130 Respiratory 32 32 24 Rate Blood Pressure (mmHg) O2 Sat by Pulse 96 Oximetry Oxygen Devices in Use Now: Nasal Cannula Appearance: alert, NAD Eyes: No Scleral Icterus, PERRLA Ears/Nose/Mouth/Throat: NL Teeth, Lips, Gums, Mucous Membranes Moist Neck: NL Appearance and Movements; NL JVP, Trachea Midline Respiratory: Symmetrical Chest Expansion and Respiratory Effort, - - diminished left base Cardiovascular: NL Sounds; No Murmurs; No JVD, - - mild LE edema, tachycardia Abdominal: NL Sounds; No Tenderness; No Distention Extremities: No Clubbing, Cyanosis Skin: No Rash or Ulcers Neurological: Alert and Oriented x 3 Nutrition: Taking PO's Result Diagrams: 05/11/18 10:03 05/10/18 15:42 Additional Lab and Data: Microbiology and Other Data: Microbiology 05/04/18 15:23 Blood Venous Aerobic Blood Culture - Preliminary No Growth Day 1 05/04/18 15:23 Blood Venous Anaerobic Blood Culture - Preliminary No Growth Day 1 05/04/18 11:49 Blood Venous Aerobic Blood Culture - Preliminary No Growth Day 1 05/04/18 11:49 Blood Venous Anaerobic Blood Culture - Preliminary No Growth Day 1 Assess/Plan/Problems-Billing Assessment: 42 yo female PMH morbid obesity with ~6 months of epigastric discomfort often correlated food intake p/w acute epigastric pain and elevated lipase concerning for acute pancreatitis of undetermined etiology. No gallstones seen on RUQ Ultrasound or CT abd/pelvis with IV contrast. No necrosis noted. Persistent hypoxia and tachycardia today. - Patient Problems (1) Acute pancreatitis Code(s): K85.90 - ACUTE PANCREATITIS WITHOUT NECROSIS OR INFECTION, UNSP SNOMED Code(s): 261336902 Comment: - Sepsis resolved - Noted persistent leukocytosis today? - Etiology unclear, triglycerides NL, LFTs improved, may have passed a gallstone? - Tolerating CLD, will advance to full - Will DC DRAG OUT WORKER pump and place on analgesics Q3H as neede - Cultures NTD (2) Abdominal pain Code(s): R10.9 - UNSPECIFIED ABDOMINAL PAIN SNOMED Code(s): 80547994 Comment: - 2/2 pancreatitis - Resolving, DC DRAG OUT WORKER pump - Continue dialudid IV PRN (3) Hyperglycemia Code(s): R73.9 - HYPERGLYCEMIA, UNSPECIFIED SNOMED Code(s): 97945544 Comment: - FSBG ACHS with lispro high dose SSI, Lantus added QHS - Patient with new diagnosis of diabetes mellitus (A1C 7.9), will need metformin and lifestyle management at [place] (4) Hypertension Code(s): I10 - ESSENTIAL (PRIMARY) HYPERTENSION SNOMED Code(s): 57978350 Comment: - Reports prior diagnosis but no meds at home - Trial amlodipine today (5) Hypothyroidism Current Visit: Yes Status: Acute Code(s): E03.9 - HYPOTHYROIDISM, UNSPECIFIED SNOMED Code(s): 66933502 Comment: - Hx of hypothyroidism but stopped taking medication several years ago d/t lack of insurance. No need for supplementation at this time. (6) Hypoxia Code(s): R09.02 - HYPOXEMIA SNOMED Code(s): 761614326 Comment: - Off Vapotherm, on [place] - Unable to wean - Repeat CXR today (7) Leukocytosis Code(s): D72.829 - ELEVATED WHITE BLOOD CELL COUNT, UNSPECIFIED SNOMED Code(s) : 260972139 Comment: - Concern for increasing WBCs - Repeat CXR today (8) DVT prophylaxis Code(s): JOP4181 - SNOMED Code(s): 596379266 Comment: - HSQ (9) Full code status Code(s): Z78.9 - OTHER SPECIFIED HEALTH STATUS SNOMED Code(s): 383939440 Status and Disposition: Remain inpatient. Given increased leukocytosis and SOB and persistent tachycardia, concern for other infectious process. Re-eval after CXR.
--- NOTE | 2018-05-11 11:10 | PN ---
Subjective Date of Service: 05/11/18 Interval History: Patient seen and examined. Still with leukocytosis and tachycardia. Denies chest pain, breathless at times. No abdominal pain or diarrhea noted. Explained yesterday's CXR appears to have interval changes for PNA/HAP. Given allergy profile, was started on aztreonam and levaquin yesterday. Objective Active Medications: Acetaminophen (Tylenol Supp*) 650 mg [place] Q6H PRN PRN Reason: FEVER/PAIN Albuterol/Ipratropium (Duoneb (Albuterol 2.5 Mg/Ipratropium 0.5 Mg)) 1 neb INH Q4H PRN PRN Reason: SOB/WHEEZING Last Admin: 05/11/18 09:13 Dose: 1 neb Amlodipine Besylate (Norvasc Tab*) 5 mg PO DAILY [facility] Last Admin: 05/11/18 09:09 Dose: 5 mg Bisacodyl (Dulcolax Supp*) 10 mg GA DAILY PRN PRN Reason: CONSTIPATION Last Admin: 05/07/18 20:40 Dose: 10 mg Dextrose (D50w Syringe 50 Ml*) 12.5 gm IV PUSH .FOR FS < 60 - SS PRN PRN Reason: FS < 60 Famotidine (Pepcid Iv*) 20 mg IV DAILY [facility] Last Admin: 05/11/18 09:09 Dose: 20 mg Heparin Sodium (Porcine) (Heparin Vial(*)) 5,000 units SUBCUT Q8HR [facility] Last Admin: 05/11/18 05:45 Dose: 5,000 units Hydralazine HCl (Apresoline Iv*) 5 mg IV SLOW PU Q6H PRN PRN Reason: BLOOD PRESSURE Last Admin: 05/10/18 21:02 Dose: 5 mg Hydromorphone HCl (Dilaudid Injic*) 1 mg IV SLOW PU Q6H PRN PRN Reason: abdominal pain Last Admin: 05/11/18 09:10 Dose: 1 mg Levofloxacin/Dextrose (Levaquin 750 Mg Ivpremix(*)) 750 mg in 150 mls @ 100 mls /hr IVPB Q24H [facility] Stop: 05/12/18 22:29 Last Admin: 05/10/18 21:07 Dose: 100 mls/hr Aztreonam 2 gm/ Sodium (Chloride) 50 mls @ 200 mls/hr IV Q8H [facility] Last Admin: 05/11/18 09:09 Dose: 200 mls/hr Insulin Glargine (Lantus(*)) 10 units SUBCUT Q24H [facility] Last Admin: 05/10/18 21:07 Dose: 10 units Insulin Human Lispro (Humalog*) 0 units SUBCUT ACHS [facility] PRN Reason: Protocol Last Admin: 05/11/18 09:09 Dose: 3 unit Lisinopril (Prinivil Tab*) 5 mg PO DAILY [facility] Last Admin: 05/11/18 09:09 Dose: 5 mg Magnesium Hydroxide (Milk Of Magnesia Liq*) 30 ml PO Q6H PRN PRN Reason: DYSPEPSIA Ondansetron HCl (Zofran Odt Tab*) 4 mg SL Q6H PRN PRN Reason: NAUSEA/VOMITING Last Admin: 05/06/18 21:11 Dose: 4 mg Polyethylene Glycol/Electrolytes (Miralax*) 17 gm PO BEDTIME [facility] Last Admin: 05/10/18 21:08 Dose: Not Given Vital Signs - 8 hr 05/11/18 05/11/18 05/11/18 03:29 03:43 04:01 Temperature 97.5 F Pulse Rate 117 115 Respiratory 18 16 24 Rate Blood Pressure 169/100 (mmHg) O2 Sat by Pulse 97 97 Oximetry 05/11/18 05/11/18 05/11/18 05:38 07:07 09:07 Temperature 98.3 F Pulse Rate 116 Respiratory 20 20 32 Rate Blood Pressure 148/89 (mmHg) O2 Sat by Pulse 98 Oximetry 05/11/18 05/11/18 05/11/18 09:10 09:15 10:02 Temperature Pulse Rate 130 Respiratory 32 32 24 Rate Blood Pressure (mmHg) O2 Sat by Pulse 96 Oximetry Oxygen Devices in Use Now: Nasal Cannula Appearance: Alert, mild distress Ears/Nose/Mouth/Throat: NL Teeth, Lips, Gums, Mucous Membranes Moist Neck: NL Appearance and Movements; NL JVP, Trachea Midline Respiratory: - - tachypneic, diminished bases Cardiovascular: - - increased bipedal edema, persistent tachycardia Abdominal: - - +BS, no tenderness, some sacral edema noted, obese Extremities: No Clubbing, Cyanosis, - - bipedal edema Neurological: Alert and Oriented x 3, NL Muscle Strength and Tone Nutrition: Taking PO's, - - full liquids Result Diagrams: 05/11/18 10:03 05/10/18 15:42 Additional Lab and Data: Microbiology and Other Data: Microbiology 05/04/18 15:23 Blood Venous Aerobic Blood Culture - Preliminary No Growth Day 1 05/04/18 15:23 Blood Venous Anaerobic Blood Culture - Preliminary No Growth Day 1 05/04/18 11:49 Blood Venous Aerobic Blood Culture - Preliminary No Growth Day 1 05/04/18 11:49 Blood Venous Anaerobic Blood Culture - Preliminary No Growth Day 1 Diagnostic Imaging: Patient Name: CLEMENT SELBY Medical Record#: [id number] Ordering Physician: Caroline Palma NP Acct.#: [id number] : 1975 Age: 42 Sex: F Location: [address] [place] [address] - MEDICAL/TELEMETRY Exam Date: 05/09/181646 ADM Status: ADM IN Order Information: CHEST PA & LAT 2 VWS Accession Number: [id number] CPT: 45880 INDICATION: Cough and wheeze. COMPARISON: Comparison is made with a prior study from May 06, 2018. TECHNIQUE: Dual-energy PA and lateral views of the chest were obtained. FINDINGS: The heart is within normal limits in size. Mediastinal and hilar contours appear within normal limits. There is a patchy infiltrate at the left lung base and a small left pleural effusion which has progressed from the prior study. There is a moderate dorsal lumbar scoliosis convex toward the left in the dorsal region and toward the right in the lumbar region. IMPRESSION: PATCHY LEFT BASILAR INFILTRATE AND SMALL PLEURAL EFFUSION DEMONSTRATING INTERVAL PROGRESSION. <Electronically signed by Brice Coronel MD in [place]> 05/09/181720 Dictated By: Brice Coronel MD Dictated Date/Time: 05/09/181720 Transcribed Date/Time: 05/09/181717 Copy to: Assess/Plan/Problems-Billing Assessment: 42 year old female admitted for acute pancreatitis of unclear etiology, DMII, HTN, s/p hypoxic respiratory failure in ICU, concerned now that persistent hypoxia and tachycardia not resolving, treating for HAP. - Patient Problems (1) Acute pancreatitis Code(s): K85.90 - ACUTE PANCREATITIS WITHOUT NECROSIS OR INFECTION, UNSP SNOMED Code(s): 684216292 Comment: - Sepsis resolved - WBCs increasing, unclear if this is 2/2 PNA/HAP or if pancreatitis is evolving - s/p 5 days meropenem - Re-evaluate abdomen, CT with contrast now. (2) Abdominal pain Code(s): R10.9 - UNSPECIFIED ABDOMINAL PAIN SNOMED Code(s): 17760151 Comment: - 2/2 pancreatitis - Pain improved, tolerated FLD - Continue dilaudid as needed (3) Hyperglycemia Code(s): R73.9 - HYPERGLYCEMIA, UNSPECIFIED SNOMED Code(s): 31918193 Comment: - FSBG ACHS with lispro high dose SSI, Lantus added QHS - Patient with new diagnosis of diabetes mellitus (A1C 7.9), will need metformin and lifestyle management at [place] - Seen by CDE yesterday (4) Hypertension Code(s): I10 - ESSENTIAL (PRIMARY) HYPERTENSION SNOMED Code(s): 16264186 Comment: - Reports prior diagnosis but no meds at home - Continue norvasc (5) Hypothyroidism Current Visit: Yes Status: Acute Code(s): E03.9 - HYPOTHYROIDISM, UNSPECIFIED SNOMED Code(s): 72005044 Comment: - Hx of hypothyroidism but stopped taking medication several years ago d/t lack of insurance. No need for supplementation at this time. (6) Hypoxia Code(s): R09.02 - HYPOXEMIA SNOMED Code(s): 972287598 Comment: - Peristent acute hypoxic respiratory failure since admission with little improvement - Cannot wean off O2, increased tachycardia this AM - Will CTA chest to r/o PE (7) Leukocytosis Code(s): D72.829 - ELEVATED WHITE BLOOD CELL COUNT, UNSPECIFIED SNOMED Code(s) : 656272335 Comment: - CXR as above, continue treatement with aztreonam/levaquin for HAP with PCN allergy (8) DVT prophylaxis Code(s): KUW9688 - SNOMED Code(s): 812777175 Comment: - HSQ (9) Full code status Code(s): Z78.9 - OTHER SPECIFIED HEALTH STATUS SNOMED Code(s): 299785917 Status and Disposition: Remain inpatient. Remain concerned that patient is not improving. Stat CTA chest and CT abdomen with contrast. Coordinated with RN. Continue to monitor closely.
[2018-05-11] MEDS ORDERED: Iodixanol 320 (CONTRAST) 100 ML SDV IV ONE (11:50)
[2018-05-11] MEDS ORDERED: Iodixanol* (CONTRAST) 320 MG/ML 100 ML SDV IV SCH (12:33)
--- NOTE | 2018-05-11 13:01 | RAD ---
INDICATION: Extremely short of breath. Assess for PE and pancreatitis. COMPARISON: May 09, 2018 chest radiograph and May 04, 2018 CT abdomen pelvis. TECHNIQUE: Multidetector CT images were obtained from the lung apices to the iliac crests with 99 mL Visipaque 320 IV contrast. No oral contrast administered limiting assessment of the alimentary tract. CT pulmonary angiogram protocol. Multiplanar reformation including maximum intensity projection images of the thorax. CHEST REPORT: Small bilateral dependent pleural effusions with proportional compressive atelectasis. The lungs are otherwise grossly clear. Negative for pneumothorax. Negative for thoracic lymphadenopathy. Top normal heart size. Negative for significant pericardial effusion. Normal diameter thoracic aorta. Negative for aortic dissection. Obese body habitus and motion artifact mildly limits the CT pulmonary angiogram. No compelling filling defects are identified from the main to the subsegmental pulmonary arteries to indicate presence of a pulmonary embolism. Negative for suspicious thoracic osseous lesions or fractures. CHEST IMPRESSION: 1. Mildly limited CT pulmonary angiogram without compelling evidence for pulmonary embolism. 2. Small bilateral dependent pleural effusions with proportional atelectasis. 3. Top normal heart size. Consider potential mild interstitial pulmonary edema as etiology for the pleural effusions. ABDOMEN: 19 cm cephalocaudal liver is decreased in density consistent with fatty infiltration. No focal hepatic lesions evident. Reference axial images 48-55 there is interval enlargement of the RIGHT main portal vein with a central filling defect new compared with the recent prior exam highly suspicious for nonocclusive portal vein thrombosis. Suggestion of additional thrombus within the main portal vein and potentially the splenic vein. Normal contrast opacification of the hepatic veins and inferior vena cava. Hyperdense normally distended gallbladder likely representing presence of biliary sludge. No dilatation of the common bile duct or intrahepatic biliary ducts evident. Severe loss of definition of the pancreas with nonenhancement of the pancreatic body through the pancreatic tail compared with the prior exam consistent with pancreatic necrosis. Moderate volume of nonloculated peripancreatic retroperitoneal fluid. Mildly enlarged 13 cm cephalocaudal spleen increased from 10.0 cm on the May 04, 2018 exam. No compelling abnormality of the unopacified upper GI or visualized small or large bowel loops. Small volume of diffuse ascites. 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 Symmetric nephrograms and pyelograms. Negative for obstructive uropathy. Unremarkable adrenal glands. Negative for lymphadenopathy within the [id number]. Normal diameter abdominal aorta and visualized proximal common iliac arteries. Physiologic distention of the IVC. Negative for suspicious focal osseous lesions. Bilateral L5 spondylolysis without associated spondylolisthesis. ABDOMEN: 1. Severe acute appendicitis with pancreatic enlargement, pancreatic inflammation, and moderate volume of nonloculated peripancreatic retroperitoneal fluid. Evidence for necrosis of more than half of the pancreas. The constellation of findings is consistent with CT severity index is equal to 9 out of 10. Severe progression of pancreatitis compared with the May 04, 2018 exam. 2. Evidence for nonocclusive portal vein thrombosis with additional probable nonocclusive thrombus at the main portal vein and potentially the splenic vein new compared with the prior exam. 3. New splenomegaly. 4. Small volume of diffuse ascites.
[2018-05-11] MEDS ORDERED: Meropenem 1 GM PREMIX(*) 1 GM/50 ML BAG IV SCH (16:00)
[2018-05-11] MEDS ORDERED: HYDROmorphone INJ* 2 MG/ML CARPUJECT SYRINGE IV SLOW PU PRN ×2 (16:00→19:05)
[2018-05-11] MEDS ORDERED: NS 0.9% 1000 ML* 1,000 ML IV SCH (16:15)
[2018-05-11 17:02] VITALS: BP 163/91
[2018-05-11] MEDS ORDERED: HYDROmorphone INJ* 2 MG/ML CARPUJECT SYRINGE IV SLOW PU ONE (19:06)
--- NOTE | 2018-05-11 19:07 | DS ---
DISCHARGE SUMMARY: DATE OF ADMISSION: 05/04/18 DATE OF DISCHARGE AND TRANSFER: To higher level of care is 05/11/18. ATTENDING FOR THIS ADMISSION: John Lujan MD MY ATTENDING FOR TODAY: Margarita Morrow DO * (DICTATED BY DINA REAL NP) PRIMARY CARE PHYSICIAN: None. HOSPITAL COURSE: Violet is a 42-year-old female with past medical history of morbid obesity, hypertension, hyperlipidemia, hypothyroidism, who arrived at the emergency department with a complaint of epigastric pain and some shortness of breath. The patient states she has been having pain on and off for a couple of months and had some postprandial pain as well. She does not have a primary care provider. She did not seek medical attention prior to coming into the emergency department. Upon initial evaluation, she was found to have a lipase of 2697. She had ultrasound of the gallbladder, which showed no acute pathology or stones. She did have a CT of the abdomen and pelvis with contrast , which showed acute pancreatitis, but at that time no evidence of necrosis, no hemorrhage. She had some hepatomegaly, but no splenomegaly at that time. 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 The patient was admitted, given fluid resuscitation and kept n.p.o. She was seen by Dr. Peralta from the GI service who evaluated her for CT scan and at that time, agreed that we had an unknown etiology for her pancreatitis. She did not have high triglycerides. She has no alcohol use in the past and no gallbladder disease. Also, IgG was tested, which was normal and made it very unlikely that this was autoimmune pancreatitis; however, she received supportive care and was admitted. On the morning of 05/06/18, the nurse informed the provider that the patient had a sepsis score of 3. She had tachycardia, tachypnea, was short of breath and was also febrile. Later that day, the patient also had some low urine output, some abdominal distention with continued fevers and chills. Also, had new acute renal failure. The patient's creatinine at that time went up to 2.4, which more than doubled and also had consistently low urine output. She was also having some shortness of breath. She was transferred to the ICU, was seen by Dr. Fletcher, the spanish speaking nanny. The patient's lipase had increased again to 5000 and then was slowly trending back down. At that point, heart rate was in the 120s, respiratory rate was approximately 30. She was placed on Vapotherm, continued with IV fluids and was also given meropenem. Her increasing work of breathing and acute hypoxic respiratory failure kept her in the ICU for several days. She continued to respond to fluids; however, she remained moderately tachycardic. She was downgraded from the ICU on 05/07/18 and sent to the floor. 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 She was still on clear liquids, which she was tolerating; however, she was not quite making much progress. On the morning of 05/09/18, the patient was still short of breath and not able to wean off oxygen. We did a chest x-ray at that time, which revealed patchy left basilar infiltrate and small pleural effusion demonstrating interval progression. She was treated at that point for hospital - acquired pneumonia, given aztreonam and levofloxacin. However, the patient stayed persistently tachycardic and heart rate went up into the 130s and 140s. Her leukocytosis increased over the 24-hour period up to 25.5. On 05/11/18, she went for a CTA of the chest to rule out PE, which was negative and CT with contrast of the abdomen. CT of the abdomen showed progression of her pancreatitis with severe acute pancreatitis with pancreatic enlargement, pancreatic inflammation, and moderate volume of non-loculated peripancreatic retroperitoneal fluid, evidence for necrosis of more than half of the pancreas. The constellation of the findings is consistent with CT severity index equal to 9/10 with severe progression of this disease as compared to her exam of 05/04. There was also evidence of nonocclusive portal vein thrombosis with an additional probable nonocclusive thrombosis at the main portal vein and potentially of the splenic vein, also new in comparison to the prior study. She also had new splenomegaly and a small volume of ascites. At this point though, the patient was sent back from the telemetry floor to the ICU. After discussion with the spanish speaking nanny, it was determined the patient would be better served in a tertiary care facility that had surgical services that would be able to address her new necrotizing pancreatitis. She was accepted by Dr. Tolbert at [facility]. She will go to ICU bed 222. Her meropenem was restarted. She was continued on IV fluids and on cardiac monitoring. She remains tachycardic and afebrile. At this point, she has a complaint of pain and some intermittent shortness of breath and also intermittent nausea with a sensation of bloating in her abdomen. She denies chest pain. She denies any arthralgias or myalgias or any further constitutional complaints. PHYSICAL EXAM: Vital Signs: Blood pressure 163/85, heart rate 130, respiratory rate 32, temperature 98.7, satting at 96% on 2 L nasal cannula. HEENT: The patient is atraumatic, normocephalic. PERRLA with nonicteric sclerae. Oral mucosa is dry. Tongue is midline. Neck is supple, nontender. No JVD noted. No thyromegaly appreciated. Cardiovascular: S1, S2 are present. Rhythm is regular. Rate is tachycardic. There is no ectopy on telemetry noted. Lungs are clear at the apices bilaterally. She has crackling and diminished breath sounds in the left lower lobe and diminished on the right lower lobe. Abdomen is moderately distended. Some edema noted. She does have an obese abdomen. However, it does not appear to be larger than her previous exam. She has hypoactive bowel sounds. is deferred. Musculoskeletal: There is no clubbing and no cyanosis. She has bipedal edema +2. She has palpable distal pulses +2. She has severe exertional dyspnea with moderate gait disturbance secondary to exertional dyspnea. Neurologic: She is grossly intact with no focal deficits. Psychiatric: She is cooperative and appropriate. LABORATORY DATA/DIAGNOSTIC STUDIES: WBC's 25.7, RBC's 3.47, hemoglobin 10.2, hematocrit 31, platelets 168,000. Sodium 133, potassium 3.2, chloride 96, BUN 11, creatinine 0.67, GFR 96.5, glucose 146. Hemoglobin A1c is 7.9. Calcium 9.0 , magnesium 1.9, bilirubin 1.10. AST 49, ALT 33, alk phos 118. Lactate is 128 , down from 300. Total protein 5.2, albumin 2.7. CRP is 344.77. Triglycerides are 100, LDL is 119, HDL is 56.5. Lipase initially was 2697, then 5642, has been trending down. Lipase today is 26. TSH is 3.49, free T4 is 1.00. Beta quant was negative. CAT scans were as above. DISPOSITION: Transferred. DIAGNOSES: 1. Acute pancreatitis with necrosis, etiology unclear. 2. Diabetes mellitus. 3. Tachycardia. 4. Sepsis. 5. Intractable abdominal pain. MEDICATIONS FOR DISCHARGE: Include: 1. Tylenol 650 mg as needed. 2. Albuterol with ipratropium q.4 hours as needed. 3. Amlodipine 5 mg daily. 4. Famotidine IV 20 mg daily. 5. Heparin 5000 units subcu daily. 6. Hydralazine 5 mg IV push q.6 hours as needed. 7. Dilaudid 1 mg q.6 hours as needed. 8. Insulin glargine 10 units subcu daily. 9. Lispro sliding scale. 10. Lisinopril 5 mg daily. 11. Meropenem 1 g daily. 12. Zofran 4 mg q.6 hours as needed. 13. Normal saline at 100 mL per hour. The patient was discharged by ALS ambulance in stable condition. I had an extensive conversation with the patient and her regarding the need for transfer to higher level of care. Her is aware of the severity of her current status and is in agreement with transferring her to [facility] today. I gave report to Dr. Tolbert, the accepting physician. The patient will go to ICU bed 222. Her bedside nurse, Rafia in the ICU, is completing the rest of her paperwork for transfer. DINA REAL NP [id number]/[facility] #: [id number] [facility] LONG ISLAND HOSPITALLeticia
== END 2018-05-11 19:00 | disposition short-term general hospital (02) | DRG 871 ==
LOC: ED 08:53 → MEDTELE 12:15 → ICU 05-06 10:40 → MEDTELE 05-08 18:20 → ICU 05-11 15:07
PROVIDERS: ADMIT Internal Medicine; ATTEND Internal Medicine
DX: A41.9 Sepsis, unspecified organism (principal); K85.91 Acute pancreatitis with uninfected necrosis, unspecified; J96.01 Acute respiratory failure with hypoxia; J18.9 Pneumonia, unspecified organism; I81 Portal vein thrombosis; Z68.43 Body mass index [BMI] 50.0-59.9, adult; N17.9 Acute kidney failure, unspecified; R18.8 Other ascites; K21.9 Gastro-esophageal reflux disease without esophagitis; M41.9 Scoliosis, unspecified; F32.9 Major depressive disorder, single episode, unspecified; F41.9 Anxiety disorder, unspecified; G89.29 Other chronic pain; E03.9 Hypothyroidism, unspecified; E66.01 Morbid (severe) obesity due to excess calories; E78.5 Hyperlipidemia, unspecified; K58.9 Irritable bowel syndrome, unspecified; M54.30 Sciatica, unspecified side; K76.0 Fatty (change of) liver, not elsewhere classified; M43.06 Spondylolysis, lumbar region; E11.9 Type 2 diabetes mellitus without complications; Z83.49 Family history of other endocrine, nutritional and metabolic diseases; Z82.0 Family history of epilepsy and other diseases of the nervous system; Q63.2 Ectopic kidney; Z82.49 Family history of ischemic heart disease and other diseases of the circulatory system; Z88.0 Allergy status to penicillin; Z88.2 Allergy status to sulfonamides; Z88.8 Allergy status to other drugs, medicaments and biological substances; Z88.1 Allergy status to other antibiotic agents; Z91.040 Latex allergy status; Z83.3 Family history of diabetes mellitus; Z72.89 Other problems related to lifestyle; Z84.0 Family history of diseases of the skin and subcutaneous tissue; Y95 Nosocomial condition; R16.1 Splenomegaly, not elsewhere classified; Z79.4 Long term (current) use of insulin
CPT/HCPCS: 36415; 71045; 71046; 71275; 74160; 74177; 76705; 80048; 80053; 80061; 80076; 81003; 81015; 82550; 82570; 82784; 82787; 82947; 83036; 83605; 83615; 83690; 83735; 84100; 84300; 84439; 84443; 84481; 84702; 85025; 85060; 86038; 86140; 86376; 86800; 87040; 87086; 93005; 94640; 99283; A9270-GY; J0360; J0744; J1170; J1644; J1885; J2185; J2270; Q9967

== ENCOUNTER 2018-06-02 22:39 | Emergency (ER) | payer MEDICAID ==
[2018-06-02] MEDS ORDERED: NS 0.9% 1000 ML* 2,000 ML IV ONE (23:20)
[2018-06-02 23:53] LABS: ABS Basophils 0.1 10^3/ul (0-0.2); ABS Eosinophils 0.8 10^3/ul (0-0.6); ABS Lymphocytes 1.1 10^3/ul (1.0-4.8); ABS Monocytes 0.8 10^3/ul (0-0.8); ABS Neutrophils 3.9 10^3/ul (1.5-7.7); ABS Nucleated RBC 0 10^3/ul; Eosinophil % 11.3 % (0-6); Hematocrit 34 % (35-47); Hemoglobin 11.4 g/dl (12.0-16.0); Lymphocyte % 16.4 % (25-47); Mean Corpuscular HGB Conc 33 g/dl (31-36); Mean Corpuscular Hemoglobin 29 pg (27-31); Mean Corpuscular Volume 89 fL (80-97); Mean Platelet Volume 8.3 um3 (7.4-10.4); Nucleated Red Blood Cells % 0; Platelet Count 328 10^3/ul (150-450); Red Blood Count 3.87 10^6/ul (4.00-5.40); Red Cell Distribution Width 15 % (10.5-15); White Blood Count 6.7 10^3/ul (3.5-10.8)
[2018-06-03] MEDS ORDERED: Insulin REGULAR(*) 1 UNITS UNIT IV PUSH ONE (00:04)
[2018-06-03 00:06] LABS: INR 3.53 (0.77-1.02)
[2018-06-03 00:13] LABS: EGFR Non-African American 75.4 (>60)
--- NOTE | 2018-06-03 01:51 | ED ---
Lalita Jaimes Emily, scribed for Maddy Israel MD on 06/02/18 at 2315 . HPI Diabetic - HPI Summary HPI Summary: This patient is a 42 year old F presenting to [facility] accompanied by family with a chief complaint of elevated glucose (in 400 range) that began earlier today. The patient rates the pain 0/10 in severity. Symptoms aggravated by nothing. Symptoms alleviated by nothing. Patient reports nausea. Patient denies abd pain. Pt reports that she started new antibiotics today for infection in the L eye. Pt reports she recently had treatment of necretizing pancreatitis. Pt reports she takes 6 units of insulin every six hours. Pt reports her blood sugar is normally in the 200s. - History Of Current Complaint Chief Complaint: EDDiabeticProb Time Seen by Provider: 06/02/18 22:58 Hx Obtained From: Patient Hx Last Menstrual Period: Now Onset/Duration: Sudden Onset Severity Initially: Mild Severity Currently: Mild Character: Alert Aggravating: Nothing Alleviating: Nothing Associated Signs & Symptoms: Nausea - Allergies/Home Medications Allergies/Adverse Reactions: Allergies Allergy/AdvReac Type Severity Reaction Status Date / Time cefaclor [From Ceclor] Allergy Severe Hives Verified 06/02/18 23:04 Latex, Natural Rubber Allergy Severe Hives Verified 06/02/18 23:04 loracarbef [From Lorabid] Allergy Severe Hives Verified 06/02/18 23:04 Penicillins Allergy Severe Difficulty Verified 06/02/18 23:04 Breathing Sulfa (Sulfonamide Allergy Severe Hives Verified 06/02/18 23:04 Antibiotics) clarithromycin [From Biaxin] Allergy Intermediate Headache Verified 06/02/18 23: 04 Home Medications: Home Medications Doxycycline Hyclate 100 mg PO BID 06/03/18 [History Confirmed 06/03/18] Famotidine [Pepcid AC Maximum Strengt] 20 mg PO BID 06/03/18 [History Confirmed 06/03/18] Insulin Regular, Human [Novolin R] 6 units SQ Q6H 06/03/18 [History Confirmed ] Levothyroxine TAB* [Synthroid TAB*] 75 mcg PO DAILY 06/03/18 [History Confirmed 06/03/18] Metoprolol Tartrate TAB* [Lopressor TAB*] 25 mg PO TID 06/03/18 [History Confirmed 06/03/18] Tobramycin 0.3% OPHTH.NAKIA* 1 drop BOTH EYES Q4H 06/03/18 [History Confirmed 06/14] Warfarin Sodium 5 mg PO DAILY 06/03/18 [History Confirmed 06/03/18] PMH/Surg Hx/FS Hx/Imm Hx Previously Healthy: No Endocrine/Hematology History: Reports: Hx Diabetes GI History: Reports: Hx Gastroesophageal Reflux Disease, Other GI Disorders - Positive necretizing pancreatitis Musculoskeletal History: Reports: Hx Scoliosis Sensory History: Reports: Hx Contacts or Glasses Denies: Hx Legally Blind, Hx Deafness, Hx Hearing Aid Opthamlomology History: Reports: Hx Contacts or Glasses Denies: Hx Legally Blind - Surgical History Surgery Procedure, Year, and Place: NONE Infectious Disease History: No Infectious Disease History: Denies: Traveled Outside the [place] in Last 30 Days - Family History Known Family History: Positive: Cardiac Disease, Diabetes - Social History Occupation: Employed Full-time Lives: With Family Alcohol Use: Occasionally Hx Substance Use: No Substance Use Type: Reports: None Hx Tobacco Use: No Smoking Status (MU): Never Smoked Tobacco Have You Smoked in the Last Year: No Review of Systems Positive: Fever Positive: Nausea, Other - Elevated blood sugar. Negative: Abdominal Pain All Other Systems Reviewed And Are Negative: Yes Physical Exam - Summary Physical Exam Summary: VITAL SIGNS: Reviewed. GENERAL: Patient is a well-developed and nourished female who is lying comfortable in the stretcher. Patient is not in any acute respiratory distress. HEAD AND FACE: No signs of trauma. No ecchymosis, hematomas or skull depressions. No sinus tenderness. EYES: PERRLA, EOMI x 2, No injected conjunctiva, no nystagmus. EARS: Hearing grossly intact. Ear canals and tympanic membranes are within normal limits. MOUTH: Oropharynx within normal limits. NECK: Supple, trachea is midline, no adenopathy, no JVD, no carotid bruit, no c- spine tenderness, neck with full ROM. CHEST: Symmetric, no tenderness at palpation LUNGS: Clear to auscultation bilaterally. No wheezing or crackles. CVS: Regular rate and rhythm, S1 and S2 present, no murmurs or gallops appreciated. ABDOMEN: Soft, non-tender. No signs of distention. No rebound no guarding, and no masses palpated. Bowel sounds are normal. EXTREMITIES: FROM in all major joints, no edema, no cyanosis or clubbing. NEURO: Alert and oriented x 3. No acute neurological deficits. Speech is normal and follows commands. SKIN: Dry and warm Triage Information Reviewed: Yes Vital Signs On Initial Exam: Initial Vitals Temp Pulse Resp BP Pulse Ox 97.2 F 92 22 134/87 97 06/02/18 22:46 06/02/18 22:46 06/02/18 22:46 06/02/18 22:46 06/02/18 22:46 Vital Signs Reviewed: Yes Diagnostics - Vital Signs Vital Signs Temp Pulse Resp BP Pulse Ox 06/02/18 22:46 97.2 F 92 22 134/87 97 - Laboratory Result Diagrams: 06/02/18 23:46 06/02/18 23:46 Lab Statement: Any lab studies that have been ordered have been reviewed, and results considered in the medical decision making process. Re-Evaluation - Re-Evaluation First Eval Re-Evaluation Time: 01:42 Change: Improved Comment: Blood sugar is 179 Diabetic Course/Dx - Course Course Of Treatment: This patient is a 42 year old F presenting to [facility] accompanied by family with a chief complaint of elevated glucose (in 400 range) that began earlier today. Blood work and UA obtained. In the ED course the patient was given fluids and Insulin. Patient will be discharged with follow up from PCP. The patient is agreeable with this plan. - Diagnoses Provider Diagnoses: Hyperglycemia Discharge - Sign-Out/Discharge Documenting (check all that apply): Discharge/Admit/Transfer - Discharge home - Discharge Plan Condition: Stable Disposition: HOME Patient Education Materials: Diabetic Hyperglycemia (ED) Referrals: [facility] [Outside] - 3 Days Additional Instructions: RETURN TO THE EMERGENCY DEPARTMENT FOR NEW OR WORSENING SYMPTOMS The documentation as recorded by the Lalita thornton Emily accurately reflects the service I personally performed and the decisions made by me, Maddy Israel MD.
[2018-06-03 02:07] VITALS: BP 144/90
== END 2018-06-03 02:10 | disposition home or self-care (01) ==
LOC: ED 22:39
DX: E11.65 Type 2 diabetes mellitus with hyperglycemia (principal); R50.9 Fever, unspecified; R11.0 Nausea; Z88.0 Allergy status to penicillin; Z88.8 Allergy status to other drugs, medicaments and biological substances; Z87.19 Personal history of other diseases of the digestive system
CPT/HCPCS: 36415; 80053; 82150; 83690; 83735; 85025; 85610; 85730; 86140; 96374; 99283